=== PATIENT | female | born 1980 | race American Indian/Alaskan Native ===

== ENCOUNTER 2017-01-29 08:15 | Outpatient (CLI) | payer MEDICARE ==
--- NOTE | 2017-01-30 08:33 | Vascular Lab Report ---
RIGHT UPPER EXTREMITY VENOUS DUPLEX: REASON FOR EXAM: Pain and swelling of the right upper extremity COMMENTS ON THE RIGHT: All arm veins visualized are freely compressible without evidence of internal echogenicity. The subclavian and internal jugular veins are free of thrombus. Flow is spontaneous and phasic throughout. Chronic superficial thrombophlebitis is noted in the mid cephalic vein COMMENTS ON THE LEFT: The subclavian and internal jugular veins are free of thrombus. IMPRESSION: No evidence of acute or chronic deep venous thrombosis in the right upper extremity. Chronic superficial thrombophlebitis in the right cephalic vein
== END 2017-01-29 08:16 | disposition home or self-care (01) ==
LOC: VAS 08:15
PROVIDERS: ATTEND Internal Medicine Hematology
DX: I63.6 Cerebral infarction due to cerebral venous thrombosis, nonpyogenic (principal); I82.623 Acute embolism and thrombosis of deep veins of upper extremity, bilateral; I80.8 Phlebitis and thrombophlebitis of other sites

== ENCOUNTER 2017-04-10 12:29 | Outpatient (CLI) | payer MEDICARE ==
[2017-04-10 12:44] LABS: Basophils % (Auto) 0.7 % (0.0-1.8); Eosinophils % (Auto) 6.8 % (0.0-4.3); Hematocrit 35.3 % (30.3-42.9); Hemoglobin 11.2 gm/dl (10.1-14.3); Mean Corpuscular HGB Conc 32 % (30-34); Mean Corpuscular Volume 72 fl (79-97); Platelet Count 212 K/mm3 (140-440); Red Blood Count 4.89 M/mm3 (3.65-5.03); Red Cell Distribution Width 18.4 % (13.2-15.2); White Blood Count 7.7 K/mm3 (4.5-11.0)
[2017-04-10 12:45] LABS: Mean Corpuscular Hemoglobin 23 pg (28-32)
[2017-04-10 12:46] LABS: Bilirubin,Urine NEG (Negative); Blood,Urine NEG (Negative); Ketones,Urine NEG (Negative); Leukocyte Esterase,Urine NEG (Negative); Mucus,Urine FEW /HPF; Nitrite,Urine NEG (Negative); Protein,Urine <15 mg/dL mg/dL (Negative); Urobilinogen,Urine < 2.0 mg/dL (<2.0)
[2017-04-10 13:02] LABS: Anion Gap 18 mmol/L; Blood Urea Nitrogen 10 mg/dL (7-17); Calcium 9.4 mg/dL (8.4-10.2); Carbon Dioxide 24 mmol/L (22-30); Chloride 104.3 mmol/L (98-107); Glucose 119 mg/dL (65-100); Potassium 3.9 mmol/L (3.6-5.0); Sodium 142 mmol/L (137-145)
== END 2017-04-10 12:30 | disposition home or self-care (01) ==
LOC: LAB 12:29
PROVIDERS: ATTEND Internal Medicine Nephrology
DX: I12.9 Hypertensive chronic kidney disease with stage 1 through stage 4 chronic kidney disease, or unspecified chronic kidney disease (principal); N18.2 Chronic kidney disease, stage 2 (mild); E11.22 Type 2 diabetes mellitus with diabetic chronic kidney disease; E55.9 Vitamin D deficiency, unspecified
CPT/HCPCS: 36415; 80048; 81001; 82570; 84156; 85025

== ENCOUNTER 2017-06-26 12:41 | Outpatient (CLI) | payer MEDICARE ==
--- NOTE | 2017-06-27 07:21 | Vascular Lab Report ---
LEFT UPPER EXTREMITY VENOUS DUPLEX: REASON FOR EXAM: Pain and swelling of the left upper extremity COMMENTS ON THE LEFT: Chronic deep venous thrombosis is noted in the left internal jugular vein. Superficial thrombophlebitis noted at mid cephalic vein.. The remaining veins visualized are freely compressible without evidence of internal echogenicity. Spontaneous and phasic flow is present proximally. COMMENTS ON THE RIGHT: The subclavian and internal jugular veins are free of thrombus. 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 Superficial thrombophlebitis in the mid cephalic vein.
== END 2017-06-26 12:42 | disposition home or self-care (01) ==
LOC: VAS 12:41
PROVIDERS: ATTEND Internal Medicine Hematology & Oncology
DX: I82.C22 Chronic embolism and thrombosis of left internal jugular vein (principal); I80.8 Phlebitis and thrombophlebitis of other sites; I63.6 Cerebral infarction due to cerebral venous thrombosis, nonpyogenic; E11.9 Type 2 diabetes mellitus without complications; I10 Essential (primary) hypertension; J45.909 Unspecified asthma, uncomplicated

== ENCOUNTER 2017-08-01 12:14 | Outpatient (CLI) | payer MEDICARE ==
[2017-08-01 12:58] LABS: Blood Urea Nitrogen 8 mg/dL (7-17)
[2017-08-01] MEDS ORDERED: NACL ONE (13:16)
--- NOTE | 2017-08-01 14:46 | Cat Scan Report ---
CT scan of upper left extremity with contrast injection: History: Acute embolism. Findings: Extravasation of contrast is noted in the subcutaneous tissue during injection of contrast. Extravasated area measures 3.3 cm in diameter. Noted distal to the elbow. The deep venous system of the left arm including axillary vein is visualized and reveals no definite evidence of acute deep vein thrombosis. Impression: No definite evidence of acute deep vein thrombosis.
== END 2017-08-01 12:15 | disposition home or self-care (01) ==
LOC: CT 12:14
PROVIDERS: ATTEND Internal Medicine Hematology
DX: I82.623 Acute embolism and thrombosis of deep veins of upper extremity, bilateral (principal); I63.6 Cerebral infarction due to cerebral venous thrombosis, nonpyogenic
CPT/HCPCS: 36415; 73201; 82565; 84520; Q9967

== ENCOUNTER 2017-09-16 08:04 | Outpatient (CLI) | payer MEDICARE ==
--- NOTE | 2017-09-18 11:30 | Vascular Lab Report ---
LEFT UPPER EXTREMITY VENOUS DUPLEX: REASON FOR EXAM: DVT COMMENTS ON THE LEFT: There is a chronic deep venous thrombus in the left internal jugular vein which is nonocclusive and a chronic deep venous thrombus extending into the left subclavian vein and left axillary vein which is nonocclusive. The remaining veins visualized are freely compressible without evidence of internal echogenicity. Spontaneous and phasic flow is diminished proximally. COMMENTS ON THE RIGHT: The subclavian and internal jugular veins are free of thrombus. IMPRESSION: Chronic left upper extremity deep venous thrombus; no acute deep venous thrombus noted
== END 2017-09-16 08:05 | disposition home or self-care (01) ==
LOC: VAS 08:04
PROVIDERS: ATTEND Internal Medicine Hematology
DX: I82.623 Acute embolism and thrombosis of deep veins of upper extremity, bilateral (principal); I63.6 Cerebral infarction due to cerebral venous thrombosis, nonpyogenic

== ENCOUNTER 2017-10-03 04:10 | Inpatient (IN) | payer MEDICARE ==
[2017-10-03] MEDS ORDERED: AMIDATE IV ONE (04:14)
[2017-10-03] MEDS ORDERED: ZEMURON IV ONE (04:14)
[2017-10-03] MEDS ORDERED: NARCAN 2 MG/2 ML ONE (04:14)
[2017-10-03] MEDS ORDERED: VASELINE LIP THERAPY TP PRN ×2 (04:22→06:41)
[2017-10-03] MEDS ORDERED: ARTIFICIAL TEARS OPHTH OINT OU PRN ×2 (04:22→06:41)
--- NOTE | 2017-10-03 04:39 | Emergency Department Report ---
ED Altered Mental Status HPI - General Chief Complaint: Altered Mental Status Stated Complaint: UNRESPONSIVE Time Seen by Provider: 10/03/17 04:23 Source: EMS Mode of arrival: Ambulatory Limitations: No Limitations - History of Present Illness Initial Comments: 20. Patient is a 37-year-old female past history of diabetes and stroke who presents with unresponsiveness and altered mental status. History obtained by EMS. Patient had a seizure and was found unresponsive by her son patient was given 2 mg of Narcan by EMS her blood sugar via EMS was over 500. Further history is limited due to acuity of condition. - Related Data Home Medications Medication Instructions Recorded Confirmed Last Taken Advair HFA 45/21 mcg 2 puff INHALATION BID 12/08/15 12/08/15 12/04/15 Insulin NPH Hum/Reg Insulin Hm 25 units SQ BID 12/08/15 12/08/15 12/04/15 Levemir VIAL 25 units SQ HS 12/08/15 12/08/15 12/04/15 ProAir HFA Inhaler 2 puff INHALATION DAILY 12/08/15 12/08/15 12/04/15 Previous Rx's Medication Instructions Recorded Last Taken Type Canagliflozin (Nf) [Invokana] 100 mg PO QDAY #30 tablet 12/10/15 Unknown Rx Allergies Allergy/AdvReac Type Severity Reaction Status Date / Time egg Allergy Unknown Verified 10/03/17 04:13 orange Allergy Rash Verified 10/03/17 04:13 peanut Allergy Unknown Verified 10/03/17 04:13 strawberry Allergy Rash Verified 10/03/17 04:13 Sulfa (Sulfonamide Allergy Unknown Verified 10/03/17 04:13 Antibiotics) sulfamethoxazole Allergy Unknown Verified 10/03/17 04:13 [From Bactrim] trimethoprim [From Bactrim] Allergy Unknown Verified 10/03/17 04:13 SEAFOOD Allergy Rash Uncoded 10/03/17 04:13 ED Review of Systems ROS: Stated complaint: UNRESPONSIVE Other details as noted in HPI ED Past Medical Hx - Past Medical History Previous Medical History?: Yes Hx Hypertension: Yes Hx Congestive Heart Failure: No Hx Diabetes: Yes Hx Deep Vein Thrombosis: No Hx Seizures: Yes ( induced- last seizure 4 yrs ago) Hx Asthma: Yes Hx COPD: No Additional medical history: "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 PER EMS" - Surgical History Past Surgical History?: Yes Hx Pacemaker: No Hx Internal Defibrillator: No Additional Surgical History: "left knee" "" "sinus surgeries" - Social History Smoking Status: Never Smoker - Medications Home Medications: Home Medications Medication Instructions Recorded Confirmed Last Taken Type Advair HFA 45/21 mcg 2 puff INHALATION BID 12/08/15 12/08/15 12/04/15 History Insulin NPH Hum/Reg Insulin Hm 25 units SQ BID 12/08/15 12/08/15 12/04/15 History Levemir VIAL 25 units SQ HS 12/08/15 12/08/15 12/04/15 History ProAir HFA Inhaler 2 puff INHALATION DAILY 12/08/15 12/08/15 12/04/15 History Canagliflozin (Nf) [Invokana] 100 mg PO QDAY #30 tablet 12/10/15 Unknown Rx ED Physical Exam - General Limitations: No Limitations - Assessment Assessment Interval: Baseline - Level of Consciousness 1a. Level of Consciousness: not alert, rep stimuli - LOC Questions 1b. LOC Questions: answers no questions correctly - LOC Command 1c. LOC Commands: performs no tasks correctly - Best Gaze 2. Best Gaze: normal - Visual 3. Visual: bilateral hemianopia - Facial Palsy 4. Facial Palsy: normal symmetrical movement - Motor Arm 5b. Motor Arm Right: no movement 5a. Motor Arm Left: no movement - Motor Leg 6a. Motor Leg Left: no movement 6b. Motor Leg Right: no movement - Limb Ataxia 7. Limb Ataxia: absent - Sensory 8. Sensory: normal - Best Language 9. Best Language: no aphasia - Dysarthria 10. Dysarthria: normal - Extinction and Inattention 11. Extinction/Inattention: no abnormality - Scoring Total Score: 25 Stroke Severity: Severe Stroke ED Course Vital Signs 10/03/17 10/03/17 10/03/17 04:10 04:22 05:36 Pulse Rate 123 H 127 H Respiratory 18 18 19 Rate Blood Pressure 125/76 Blood Pressure 137/79 [Left] O2 Sat by Pulse 95 99 100 Oximetry 10/03/17 10/03/17 05:39 06:21 Pulse Rate Respiratory 18 20 Rate Blood Pressure Blood Pressure [Left] O2 Sat by Pulse 100 100 Oximetry - Reevaluation(s) Reevaluation #1: 10/03/17 06:57 Discussed patient's care with patient's family they state patient is not on any insulin and takes Januvia for her diabetes. - Intubation Time Out Performed: Yes Sedative: Etomidate Mg Given: 20 Paralytic: Rocuronium Mg Given: 100 Laryngoscope: fiberoptic video scope Size: 3 Assist Device Used: fiberoptic device ET Tube Size: 7.5 Tube Secured Depth (cm): 28 Tube Placement Confirmation: visualized tube passing t, equal breath sounds bilat, confirmation by capnometr Patient Tolerated Procedure: well Intubation Complications: none - Lab Data Result diagrams: 10/03/17 04:22 10/03/17 05:18 Lab Results 10/03/17 10/03/17 10/03/17 Range/Units 04:22 04:22 04:22 WBC 13.8 H (4.5-11.0) K/mm3 RBC 5.13 H (3.65-5.03) M/mm3 Hgb 12.4 (10.1-14.3) gm/dl Hct 43.6 H (30.3-42.9) % MCV 85 (79-97) fl MCH 24 L (28-32) pg MCHC 29 L (30-34) % RDW 17.4 H (13.2-15.2) % Plt Count 204 (140-440) K/mm3 Lymph % (Auto) 26.4 (13.4-35.0) % [place] % (Auto) 8.4 H (0.0-7.3) % Eos % (Auto) 0.3 (0.0-4.3) % Baso % (Auto) 0.5 (0.0-1.8) % Lymph # 3.7 (1.2-5.4) K/mm3 [place] # 1.2 H (0.0-0.8) K/mm3 Eos # 0.0 (0.0-0.4) K/mm3 Baso # 0.1 (0.0-0.1) K/mm3 Seg Neutrophils % 64.4 (40.0-70.0) % Seg Neutrophils # 8.9 H (1.8-7.7) K/mm3 VBG pH (7.320-7.420) Sodium 128 L (137-145) mmol/L Potassium 4.3 (3.6-5.0) mmol/L Chloride 86.0 L (98-107) mmol/L Carbon Dioxide 18 L (22-30) mmol/L Anion Gap 28 mmol/L BUN 18 H (7-17) mg/dL Creatinine 1.7 H (0.7-1.2) mg/dL Estimated GFR 40 ml/min BUN/Creatinine Ratio 11 % Glucose 1396 H* (65-100) mg/dL Lactic Acid 7.20 H* (0.7-2.0) mmol/L Calcium 9.8 (8.4-10.2) mg/dL Phosphorus (2.5-4.5) mg/dL Magnesium 2.50 H (1.7-2.3) mg/dL Total Bilirubin 0.60 (0.1-1.2) mg/dL AST 11 (5-40) units/L ALT 13 (7-56) units/L Alkaline Phosphatase 107 (35-129) units/L Total Protein 8.4 H (6.3-8.2) g/dL Albumin 4.5 (3.9-5) g/dL Albumin/Globulin Ratio 1.2 % TSH (0.270-4.200) mlU/mL HCG, Qual (Negative) Urine Color (Yellow) Urine Turbidity (Clear) Urine pH (5.0-7.0) Ur Specific [place] (1.003-1.030) Urine Protein (Negative) mg/dL Urine Glucose (UA) (Negative) mg/dL Urine Ketones (Negative) mg/dL Urine Blood (Negative) Urine Nitrite (Negative) Urine Bilirubin (Negative) Urine Urobilinogen (<2.0) mg/dL Ur Leukocyte Esterase (Negative) Urine WBC (Auto) (0.0-6.0) /HPF Urine RBC (Auto) (0.0-6.0) /HPF U Epithel Cells (Auto) (0-13.0) /HPF Urine Mucus /HPF Salicylates (2.8-20.0) mg/dL Urine Opiates Screen Urine Methadone Screen Acetaminophen (10.0-30.0) ug/mL Ur Phencyclidine Scrn Ur Amphetamines Screen Urine Cocaine Screen U Marijuana (THC) Screen Plasma/Serum Alcohol (0-0.07) gm% 10/03/17 10/03/17 10/03/17 Range/Units 04:22 04:22 04:22 WBC (4.5-11.0) K/mm3 RBC (3.65-5.03) M/mm3 Hgb (10.1-14.3) gm/dl Hct (30.3-42.9) % MCV (79-97) fl MCH (28-32) pg MCHC (30-34) % RDW (13.2-15.2) % Plt Count (140-440) K/mm3 Lymph % (Auto) (13.4-35.0) % [place] % (Auto) (0.0-7.3) % Eos % (Auto) (0.0-4.3) % Baso % (Auto) (0.0-1.8) % Lymph # (1.2-5.4) K/mm3 [place] # (0.0-0.8) K/mm3 Eos # (0.0-0.4) K/mm3 Baso # (0.0-0.1) K/mm3 Seg Neutrophils % (40.0-70.0) % Seg Neutrophils # (1.8-7.7) K/mm3 VBG pH (7.320-7.420) Sodium (137-145) mmol/L Potassium (3.6-5.0) mmol/L Chloride (98-107) mmol/L Carbon Dioxide (22-30) mmol/L Anion Gap mmol/L BUN (7-17) mg/dL Creatinine (0.7-1.2) mg/dL Estimated GFR ml/min BUN/Creatinine Ratio % Glucose (65-100) mg/dL Lactic Acid (0.7-2.0) mmol/L Calcium (8.4-10.2) mg/dL Phosphorus (2.5-4.5) mg/dL Magnesium (1.7-2.3) mg/dL Total Bilirubin (0.1-1.2) mg/dL AST (5-40) units/L ALT (7-56) units/L Alkaline Phosphatase (35-129) units/L Total Protein (6.3-8.2) g/dL Albumin (3.9-5) g/dL Albumin/Globulin Ratio % TSH 0.974 (0.270-4.200) mlU/mL HCG, Qual (Negative) Urine Color (Yellow) Urine Turbidity (Clear) Urine pH (5.0-7.0) Ur Specific [place] (1.003-1.030) Urine Protein (Negative) mg/dL Urine Glucose (UA) (Negative) mg/dL Urine Ketones (Negative) mg/dL Urine Blood (Negative) Urine Nitrite (Negative) Urine Bilirubin (Negative) Urine Urobilinogen (<2.0) mg/dL Ur Leukocyte Esterase (Negative) Urine WBC (Auto) (0.0-6.0) /HPF Urine RBC (Auto) (0.0-6.0) /HPF U Epithel Cells (Auto) (0-13.0) /HPF Urine Mucus /HPF Salicylates < 0.3 L (2.8-20.0) mg/dL Urine Opiates Screen Urine Methadone Screen Acetaminophen (10.0-30.0) ug/mL Ur Phencyclidine Scrn Ur Amphetamines Screen Urine Cocaine Screen U Marijuana (THC) Screen Plasma/Serum Alcohol < 0.01 (0-0.07) gm% 10/03/17 10/03/17 10/03/17 Range/Units 05:18 05:18 05:18 WBC (4.5-11.0) K/mm3 RBC (3.65-5.03) M/mm3 Hgb (10.1-14.3) gm/dl Hct (30.3-42.9) % MCV (79-97) fl MCH (28-32) pg MCHC (30-34) % RDW (13.2-15.2) % Plt Count (140-440) K/mm3 Lymph % (Auto) (13.4-35.0) % [place] % (Auto) (0.0-7.3) % Eos % (Auto) (0.0-4.3) % Baso % (Auto) (0.0-1.8) % Lymph # (1.2-5.4) K/mm3 [place] # (0.0-0.8) K/mm3 Eos # (0.0-0.4) K/mm3 Baso # (0.0-0.1) K/mm3 Seg Neutrophils % (40.0-70.0) % Seg Neutrophils # (1.8-7.7) K/mm3 VBG pH 7.211 L (7.320-7.420) Sodium (137-145) mmol/L Potassium (3.6-5.0) mmol/L Chloride (98-107) mmol/L Carbon Dioxide (22-30) mmol/L Anion Gap mmol/L BUN (7-17) mg/dL Creatinine (0.7-1.2) mg/dL Estimated GFR ml/min BUN/Creatinine Ratio % Glucose (65-100) mg/dL Lactic Acid (0.7-2.0) mmol/L Calcium (8.4-10.2) mg/dL Phosphorus (2.5-4.5) mg/dL Magnesium (1.7-2.3) mg/dL Total Bilirubin (0.1-1.2) mg/dL AST (5-40) units/L ALT (7-56) units/L Alkaline Phosphatase (35-129) units/L Total Protein (6.3-8.2) g/dL Albumin (3.9-5) g/dL Albumin/Globulin Ratio % TSH (0.270-4.200) mlU/mL HCG, Qual Negative (Negative) Urine Color (Yellow) Urine Turbidity (Clear) Urine pH (5.0-7.0) Ur Specific [place] (1.003-1.030) Urine Protein (Negative) mg/dL Urine Glucose (UA) (Negative) mg/dL Urine Ketones (Negative) mg/dL Urine Blood (Negative) Urine Nitrite (Negative) Urine Bilirubin (Negative) Urine Urobilinogen (<2.0) mg/dL Ur Leukocyte Esterase (Negative) Urine WBC (Auto) (0.0-6.0) /HPF Urine RBC (Auto) (0.0-6.0) /HPF U Epithel Cells (Auto) (0-13.0) /HPF Urine Mucus /HPF Salicylates (2.8-20.0) mg/dL Urine Opiates Screen Urine Methadone Screen Acetaminophen < 15.0 (10.0-30.0) ug/mL Ur Phencyclidine Scrn Ur Amphetamines Screen Urine Cocaine Screen U Marijuana (THC) Screen Plasma/Serum Alcohol (0-0.07) gm% 10/03/17 10/03/17 10/03/17 Range/Units 05:18 05:32 05:43 WBC (4.5-11.0) K/mm3 RBC (3.65-5.03) M/mm3 Hgb (10.1-14.3) gm/dl Hct (30.3-42.9) % MCV (79-97) fl MCH (28-32) pg MCHC (30-34) % RDW (13.2-15.2) % Plt Count (140-440) K/mm3 Lymph % (Auto) (13.4-35.0) % [place] % (Auto) (0.0-7.3) % Eos % (Auto) (0.0-4.3) % Baso % (Auto) (0.0-1.8) % Lymph # (1.2-5.4) K/mm3 [place] # (0.0-0.8) K/mm3 Eos # (0.0-0.4) K/mm3 Baso # (0.0-0.1) K/mm3 Seg Neutrophils % (40.0-70.0) % Seg Neutrophils # (1.8-7.7) K/mm3 VBG pH (7.320-7.420) Sodium 131 L (137-145) mmol/L Potassium 6.7 H* D (3.6-5.0) mmol/L Chloride 90.2 L (98-107) mmol/L Carbon Dioxide 19 L (22-30) mmol/L Anion Gap 29 mmol/L BUN 18 H (7-17) mg/dL Creatinine 1.6 H (0.7-1.2) mg/dL Estimated GFR 43 ml/min BUN/Creatinine Ratio 11 % Glucose 1313 H* (65-100) mg/dL Lactic Acid (0.7-2.0) mmol/L Calcium 10.2 (8.4-10.2) mg/dL Phosphorus 9.60 H (2.5-4.5) mg/dL Magnesium 2.50 H (1.7-2.3) mg/dL Total Bilirubin (0.1-1.2) mg/dL AST (5-40) units/L ALT (7-56) units/L Alkaline Phosphatase (35-129) units/L Total Protein (6.3-8.2) g/dL Albumin (3.9-5) g/dL Albumin/Globulin Ratio % TSH (0.270-4.200) mlU/mL HCG, Qual (Negative) Urine Color Red (Yellow) Urine Turbidity Clear (Clear) Urine pH 6.0 (5.0-7.0) Ur Specific [place] 1.025 (1.003-1.030) Urine Protein <15 mg/dl (Negative) mg/dL Urine Glucose (UA) >=500 (Negative) mg/dL Urine Ketones Tr (Negative) mg/dL Urine Blood Mod (Negative) Urine Nitrite Neg (Negative) Urine Bilirubin Neg (Negative) Urine Urobilinogen < 2.0 (<2.0) mg/dL Ur Leukocyte Esterase Neg (Negative) Urine WBC (Auto) < 1.0 (0.0-6.0) /HPF Urine RBC (Auto) 1.0 (0.0-6.0) /HPF U Epithel Cells (Auto) < 1.0 (0-13.0) /HPF Urine Mucus Few /HPF Salicylates (2.8-20.0) mg/dL Urine Opiates Screen Urine Methadone Screen Acetaminophen (10.0-30.0) ug/mL Ur Phencyclidine Scrn Ur Amphetamines Screen Urine Cocaine Screen U Marijuana (THC) Screen Plasma/Serum Alcohol (0-0.07) gm% 10/03/17 Range/Units 05:43 WBC (4.5-11.0) K/mm3 RBC (3.65-5.03) M/mm3 Hgb (10.1-14.3) gm/dl Hct (30.3-42.9) % MCV (79-97) fl MCH (28-32) pg MCHC (30-34) % RDW (13.2-15.2) % Plt Count (140-440) K/mm3 Lymph % (Auto) (13.4-35.0) % [place] % (Auto) (0.0-7.3) % Eos % (Auto) (0.0-4.3) % Baso % (Auto) (0.0-1.8) % Lymph # (1.2-5.4) K/mm3 [place] # (0.0-0.8) K/mm3 Eos # (0.0-0.4) K/mm3 Baso # (0.0-0.1) K/mm3 Seg Neutrophils % (40.0-70.0) % Seg Neutrophils # (1.8-7.7) K/mm3 VBG pH (7.320-7.420) Sodium (137-145) mmol/L Potassium (3.6-5.0) mmol/L Chloride (98-107) mmol/L Carbon Dioxide (22-30) mmol/L Anion Gap mmol/L BUN (7-17) mg/dL Creatinine (0.7-1.2) mg/dL Estimated GFR ml/min BUN/Creatinine Ratio % Glucose (65-100) mg/dL Lactic Acid (0.7-2.0) mmol/L Calcium (8.4-10.2) mg/dL Phosphorus (2.5-4.5) mg/dL Magnesium (1.7-2.3) mg/dL Total Bilirubin (0.1-1.2) mg/dL AST (5-40) units/L ALT (7-56) units/L Alkaline Phosphatase (35-129) units/L Total Protein (6.3-8.2) g/dL Albumin (3.9-5) g/dL Albumin/Globulin Ratio % TSH (0.270-4.200) mlU/mL HCG, Qual (Negative) Urine Color (Yellow) Urine Turbidity (Clear) Urine pH (5.0-7.0) Ur Specific [place] (1.003-1.030) Urine Protein (Negative) mg/dL Urine Glucose (UA) (Negative) mg/dL Urine Ketones (Negative) mg/dL Urine Blood (Negative) Urine Nitrite (Negative) Urine Bilirubin (Negative) Urine Urobilinogen (<2.0) mg/dL Ur Leukocyte Esterase (Negative) Urine WBC (Auto) (0.0-6.0) /HPF Urine RBC (Auto) (0.0-6.0) /HPF U Epithel Cells (Auto) (0-13.0) /HPF Urine Mucus /HPF Salicylates (2.8-20.0) mg/dL Urine Opiates Screen Presumptive negative Urine Methadone Screen Presumptive negative Acetaminophen (10.0-30.0) ug/mL Ur Phencyclidine Scrn Presumptive negative Ur Amphetamines Screen Presumptive negative Urine Cocaine Screen Presumptive negative U Marijuana (THC) Screen Presumptive negative Plasma/Serum Alcohol (0-0.07) gm% - EKG Data -: EKG Interpreted by Me 10/03/17 06:52 EKG shows sinus tachycardia no ST segment elevation of T-wave inversions normal axis - Radiology Data Radiology results: report reviewed, image reviewed CT head: Shows no acute intracranial process Chest x-ray: Shows ET tube above the kelly no acute cardiopulmonary disease - Medical Decision Making Chief medical diagnosis: Hyperosmolar Nonketotic state Differential medical diagnosis: DKA, brain bleed, epilepsy I will intubate patient I'll give IV fluids, insulin drip, fluids, CBC, CMP, troponin, EKG we'll also get fentanyl and Versed drip Patient has no stroke NIH stroke scale was just autopopulated and patient does not need a cervical collar. Vision has DKA I will admit patient to Dr. Hays service due to life-threatening condition. - NEXUS Criteria Focal neurological deficit present: No Midline spinal tenderness present: No Altered level of consciousness: Yes Intoxication present: No Distracting injury present: No NEXUS results: C-Spine cannot be cleared clinically by these results. Imaging is required. Critical Care Time: Yes (60) Critical care time in (mins) excluding proc time.: 60 Critical care attestation.: If time is entered above; I have spent that time in minutes in the direct care of this critically ill patient, excluding procedure time. Critical care time spent with patient's family 10 minutes Critical care time spent with patient 30 minutes Critical care time spent with reviewing imaging and labs 10 Critical care time spent reviewing old records 10 minutes ED Disposition Clinical Impression: Metabolic acidosis, Toxic encephalopathy, Hyperkalemia DKA (diabetic ketoacidoses) Qualifiers: Diabetes mellitus type: type 2 Diabetes mellitus complication detail: with coma Qualified Code(s): E11.11 - Type 2 diabetes mellitus with ketoacidosis with coma Respiratory failure Qualifiers: Chronicity: acute Respiratory failure complication: unspecified whether with hypoxia or hypercapnia Qualified Code(s): J96.00 - Acute respiratory failure, unspecified whether with hypoxia or hypercapnia Disposition: 09 OP ADMIT IP TO THIS HOSP Is pt being admited?: Yes Does the pt Need Aspirin: No Condition: Stable
[2017-10-03] MEDS ORDERED: NACL 0.9% 500 ML IV SCH (05:00)
[2017-10-03 05:02] LABS: Basophils % (Auto) 0.5 % (0.0-1.8); Eosinophils % (Auto) 0.3 % (0.0-4.3); Hematocrit 43.6 % (30.3-42.9); Hemoglobin 12.4 gm/dl (10.1-14.3); Mean Corpuscular HGB Conc 29 % (30-34); Mean Corpuscular Volume 85 fl (79-97); Platelet Count 204 K/mm3 (140-440); Red Blood Count 5.13 M/mm3 (3.65-5.03); Red Cell Distribution Width 17.4 % (13.2-15.2); White Blood Count 13.8 K/mm3 (4.5-11.0)
[2017-10-03 05:03] LABS: Mean Corpuscular Hemoglobin 24 pg (28-32)
[2017-10-03 05:04] LABS: Albumin 4.5 g/dL (3.9-5); Albumin/Globulin Ratio 1.2 %; Bilirubin,Total 0.6 mg/dL (0.1-1.2); Calcium 9.8 mg/dL (8.4-10.2); Magnesium 2.5 mg/dL (1.7-2.3); Potassium 4.3 mmol/L (3.6-5.0); Total Protein 8.4 g/dL (6.3-8.2)
--- NOTE | 2017-10-03 05:26 | Cat Scan Report ---
FINAL REPORT PROCEDURE: CT HEAD/BRAIN WO CON TECHNIQUE: Computerized tomography of the head was performed without contrast material. HISTORY: altered mental status COMPARISON: 12/05/2015 FINDINGS: Skull and scalp: Normal. Paranasal sinuses: Normal. Ventricles and subarachnoid spaces: Normal. Cerebrum: No evidence of hemorrhage, acute infarction or mass . Cerebellum and brainstem: No evidence of hemorrhage, acute infarction or mass. Vasculature: Normal. Comments: None. IMPRESSION: Normal Examination
[2017-10-03] MEDS: fentaNYL DRIP Premix 2,000 MCG/100 ML BAG IV SCH ×2 (05:31→08:56)
[2017-10-03] MEDS ORDERED: D50W (25GM) Syringe IV PRN ×3 (05:32→05:59)
[2017-10-03] MEDS ORDERED: NACL 0.9% 1000 ML 1,000 ML IV ONE ×2 (05:33)
--- NOTE | 2017-10-03 05:47 | History and Physical Report ---
History of Present Illness Chief complaint: Unresponsive History of present illness: 37 YO Female with MO,HTN, DM presents to ED for evaluation. Pt intubated on vent and unable to provide history. Pt history taken from EMS as well as ED staff. As per EMS, patient was found down and unresponsive by her son who then notified EMS. Upon EMS arrival, the patient was found to be unresponsive with serum glucose above 500. Pt given narcan without improvement. Pt transported to [facility] for evaluation and treatment. Pt seen and evaluated in ED and found to be in respiratory distress, with evidence of DKA and sepsis. Pt treated IAW DKA and sepsis protocols. Pt also intubated and placed on vent support. No reports of fever, chills, CP, Palpitations, NVD, Trauma, or recent ill contacts. Past History Past Medical History: diabetes, hypertension Past Surgical History: , total knee replacement, Other (Sinus surgery) Social history: single, lives with family. denies: smoking, alcohol abuse, prescription drug abuse Family history: diabetes, hypertension Medications and Allergies Allergies Allergy/AdvReac Type Severity Reaction Status Date / Time egg Allergy Unknown Verified 10/03/17 04:13 orange Allergy Rash Verified 10/03/17 04:13 peanut Allergy Unknown Verified 10/03/17 04:13 strawberry Allergy Rash Verified 10/03/17 04:13 Sulfa (Sulfonamide Allergy Unknown Verified 10/03/17 04:13 Antibiotics) sulfamethoxazole Allergy Unknown Verified 10/03/17 04:13 [From Bactrim] trimethoprim [From Bactrim] Allergy Unknown Verified 10/03/17 04:13 SEAFOOD Allergy Rash Uncoded 10/03/17 04:13 Home Medications Medication Instructions Recorded Confirmed Last Taken Type Advair HFA 45/21 mcg 2 puff INHALATION BID 12/08/15 12/08/15 12/04/15 History Insulin NPH Hum/Reg Insulin Hm 25 units SQ BID 12/08/15 12/08/15 12/04/15 History Levemir VIAL 25 units SQ HS 12/08/15 12/08/15 12/04/15 History ProAir HFA Inhaler 2 puff INHALATION DAILY 12/08/15 12/08/15 12/04/15 History Canagliflozin (Nf) [Invokana] 100 mg PO QDAY #30 tablet 12/10/15 Unknown Rx Active Meds: Active Medications Dextrose (D50w (25gm) Syringe) 0 ml IV PRN PRN PRN Reason: Hypoglycemia Hydrophilic Ointment (Vaseline Lip Therapy) 1 applic TP Q2HR PRN PRN Reason: Dry Lips Fentanyl Citrate (Fentanyl Drip Premix) 2,000 mcg in 100 mls @ 6.804 mls/hr IV TITR KUSUM; 1 MCG/KG/HR PRN Reason: Protocol Last Admin: 10/03/17 05:31 Dose: 1 mcg/kg/hr, 6.804 mls/hr Insulin Human Regular 100 (units/ Sodium Chloride) 100 mls @ 1 mls/hr IV TITR KUSUM; 1 UNITS/HR PRN Reason: Protocol Sodium Chloride (Nacl 0.9% 1000 Ml) 1,000 mls @ 999 mls/hr IV BOLUS ONE Stop: 10/03/17 06:33 Sodium Chloride (Nacl 0.9% 1000 Ml) 1,000 mls @ 999 mls/hr IV BOLUS ONE Stop: 10/03/17 06:33 Midazolam HCl (Versed) 5 mg IV ONCE NR Stop: 10/03/17 23:45 Multi-Ingred Cream/Lotion/Oil/Oint (Artificial Tears Ophth Oint) 1 applic OU Q4HR PRN PRN Reason: Dry Eye(s) Sodium Chloride (Nacl 0.9% 500 Ml) 1 ml IV DIRECT KUSUM Review of Systems ROS unobtainable: due to mental status Exam - Constitutional Vitals: Temp Pulse Resp BP Pulse Ox 127 H 18 137/79 100 10/03/17 04:22 10/03/17 05:39 10/03/17 04:22 10/03/17 05:39 General appearance: Present: severe distress, obese - EENT Eyes: Present: PERRL ENT: hearing intact, clear oral mucosa - Neck Neck: Present: supple, normal ROM - Respiratory Respiratory effort: labored Respiratory: bilateral: diminished - Cardiovascular Rhythm: other (tachycardia) Heart Sounds: Present: S1 & S2. Absent: rub, click - Extremities Extremities: no ischemia Extremity abnormal: edema Peripheral Pulses: abnormal (capillary refill greater than 3.5 seconds) - Abdominal General gastrointestinal: Present: soft, non-tender, non-distended Female genitourinary: Present: normal - Integumentary Integumentary: Present: clear, warm, dry - Musculoskeletal Musculoskeletal: generalized weakness - Psychiatric Psychiatric: no intact judgment & insight, no memory intact - Neurologic Neurologic: no gait normal Results - Labs CBC & Chem 7: 10/03/17 04:22 10/03/17 05:18 Labs: Abnormal lab results 10/03/17 10/03/17 10/03/17 Range/Units 04:22 04:22 04:22 WBC 13.8 H (4.5-11.0) K/mm3 RBC 5.13 H (3.65-5.03) M/mm3 Hct 43.6 H (30.3-42.9) % MCH 24 L (28-32) pg MCHC 29 L (30-34) % RDW 17.4 H (13.2-15.2) % [place] % (Auto) 8.4 H (0.0-7.3) % [place] # 1.2 H (0.0-0.8) K/mm3 Seg Neutrophils # 8.9 H (1.8-7.7) K/mm3 VBG pH (7.320-7.420) Sodium 128 L (137-145) mmol/L Chloride 86.0 L (98-107) mmol/L Carbon Dioxide 18 L (22-30) mmol/L BUN 18 H (7-17) mg/dL Creatinine 1.7 H (0.7-1.2) mg/dL Glucose 1396 H* (65-100) mg/dL Lactic Acid 7.20 H* (0.7-2.0) mmol/L Magnesium 2.50 H (1.7-2.3) mg/dL Total Protein 8.4 H (6.3-8.2) g/dL Salicylates (2.8-20.0) mg/dL 10/03/17 10/03/17 Range/Units 04:22 05:18 WBC (4.5-11.0) K/mm3 RBC (3.65-5.03) M/mm3 Hct (30.3-42.9) % MCH (28-32) pg MCHC (30-34) % RDW (13.2-15.2) % [place] % (Auto) (0.0-7.3) % [place] # (0.0-0.8) K/mm3 Seg Neutrophils # (1.8-7.7) K/mm3 VBG pH 7.211 L (7.320-7.420) Sodium (137-145) mmol/L Chloride (98-107) mmol/L Carbon Dioxide (22-30) mmol/L BUN (7-17) mg/dL Creatinine (0.7-1.2) mg/dL Glucose (65-100) mg/dL Lactic Acid (0.7-2.0) mmol/L Magnesium (1.7-2.3) mg/dL Total Protein (6.3-8.2) g/dL Salicylates < 0.3 L (2.8-20.0) mg/dL Assessment and Plan - Patient Problems (1) Sepsis Current Visit: No Status: Acute Qualifiers: Sepsis type: sepsis due to unspecified organism Qualified Code(s): A41.9 - Sepsis, unspecified organism Plan to address problem: IV abx, IVF, monitor uop q shift, serial lactic acid levels, blood cultures, urinalysis, IV pressor support as clinically indicated (2) DKA (diabetic ketoacidoses) Current Visit: Yes Status: Acute Plan to address problem: DKA Protocol: Insulin drip, accu check, monitor anion gap, serial bmp, IVF resuscitation, (3) Acute respiratory failure Current Visit: Yes Status: Acute Plan to address problem: Wean vent as tolerated, Daily SBT, Sedation holiday, daily ABG, supplemental oxygen, nebs, Pulmonary consulted. (4) Metabolic acidosis Current Visit: No Status: Acute Plan to address problem: IVF resuscitation therapy, serial lactic acid, treat sepsis and DKA, (5) ARF (acute renal failure) Current Visit: Yes Status: Acute Plan to address problem: IVF resuscitation therapy, monitor uop q shift (6) Toxic encephalopathy Current Visit: Yes Status: Acute Plan to address problem: IVF resuscitation, treat sepsis and dka. (7) DVT prophylaxis Current Visit: No Status: Acute
[2017-10-03 05:56] LABS: Magnesium 2.5 mg/dL (1.7-2.3); Phosphorous 9.6 mg/dL (2.5-4.5)
[2017-10-03] MEDS ORDERED: ALUM-MAG HYDROX-SIMETH 200-200-20MG/5ML PO PRN (05:59)
[2017-10-03] MEDS ORDERED: DULCOLAX PR PRN (05:59)
[2017-10-03] MEDS ORDERED: MILK OF MAGNESIA PO PRN (05:59)
[2017-10-03] MEDS ORDERED: NovoLIN R 100 UNITS in NACL 0.9% 99 ML IV SCH ×2 (06:00)
[2017-10-03 06:03] LABS: Calcium 10.2 mg/dL (8.4-10.2)
[2017-10-03 06:04] LABS: Chloride 90.2 mmol/L (98-107)
[2017-10-03] MEDS ORDERED: NACL 0.9% 1000 ML IV ONE (06:06)
[2017-10-03 06:27] LABS: Urine Drugs of Abuse Note Disclamer
[2017-10-03 06:32] LABS: Potassium 6.7 mmol/L (3.6-5.0)
[2017-10-03 06:38] LABS: Bilirubin,Urine NEG (Negative); Blood,Urine MOD (Negative); Ketones,Urine TR mg/dL (Negative); Leukocyte Esterase,Urine NEG (Negative); Mucus,Urine FEW /HPF; Nitrite,Urine NEG (Negative); Protein,Urine <15 mg/dL mg/dL (Negative); Urobilinogen,Urine < 2.0 mg/dL (<2.0); WBC,Urine < 1.0 /HPF (0.0-6.0)
[2017-10-03 06:50] LABS: ISTAT Base Excess -5; ISTAT HCO3 22.2; ISTAT PH 7.273 (7.35-7.45); ISTAT PO2 412 (80-105); ISTAT SO2 100; ISTAT TCO2 24
[2017-10-03] MEDS: NovoLIN R 100 UNITS in NACL 0.9% 99 ML IV SCH ×2 (06:58→12:48)
[2017-10-03] MEDS ORDERED: MIDAZOLAM 100 MG in NACL 0.9% 80 ML IV SCH (07:00)
[2017-10-03 07:06] LABS: Calcium 9.4 mg/dL (8.4-10.2); Chloride 98.8 mmol/L (98-107); Magnesium 2.6 mg/dL (1.7-2.3); Phosphorous 4.3 mg/dL (2.5-4.5); Potassium 5.9 mmol/L (3.6-5.0)
[2017-10-03] MEDS: ZOSYN/NS 3.375GM/50ML 3.375 GM/50 ML BAG IV SCH ×3 (07:12→18:30)
[2017-10-03] MEDS: VERSED IV NR ×2 (07:15→07:16)
--- NOTE | 2017-10-03 07:15 | XRay Report ---
FINAL REPORT PROCEDURE: XR CHEST 1V AP TECHNIQUE: Chest radiograph anteroposterior view. CPT 03029 HISTORY: ETT placement COMPARISON: No prior studies are available for comparison. FINDINGS: Heart: Heart is borderline enlarged. Mediastinum/Vessels: Normal. Lungs/Pleural space: There is suboptimal inspiration. There are no infiltrates, effusions or pneumothoraces.. Bony thorax: No acute osseous abnormality. Life support devices: There is an endotracheal tube. The tip is in the right mainstem bronchus and should be pulled back 3 centimeters.. IMPRESSION: Heart is borderline enlarged. There is suboptimal inspiration. There are no infiltrates, effusions or pneumothoraces.. There is an endotracheal tube. The tip is in the right mainstem bronchus and should be pulled back 3 centimeters.. .
[2017-10-03 09:32] LABS: Calcium 8.8 mg/dL (8.4-10.2); Chloride 110.9 mmol/L (98-107); Potassium 3.8 mmol/L (3.6-5.0)
[2017-10-03] MEDS ORDERED: CANAGLIFLOZIN 100 MG PO SCH (10:00)
--- NOTE | 2017-10-03 10:38 | Consultation ---
History of Present Illness Consult date: 10/03/17 Requesting physician: VISHNU DIEZ Reason for consult: other (DKA) History of present illness: PULMONARY/CCM CONSULT NOTE (Full dictation # [id number]) Please see dictated notes for full details Past History Past Medical History: diabetes, hypertension Past Surgical History: , total knee replacement, Other (Sinus surgery) Social history: single, lives with family. denies: smoking, alcohol abuse, prescription drug abuse Family history: diabetes, hypertension Medications and Allergies Allergies Allergy/AdvReac Type Severity Reaction Status Date / Time egg Allergy Unknown Verified 10/03/17 04:13 orange Allergy Rash Verified 10/03/17 04:13 peanut Allergy Unknown Verified 10/03/17 04:13 strawberry Allergy Rash Verified 10/03/17 04:13 Sulfa (Sulfonamide Allergy Unknown Verified 10/03/17 04:13 Antibiotics) sulfamethoxazole Allergy Unknown Verified 10/03/17 04:13 [From Bactrim] trimethoprim [From Bactrim] Allergy Unknown Verified 10/03/17 04:13 SEAFOOD Allergy Rash Uncoded 10/03/17 04:13 Home Medications Medication Instructions Recorded Confirmed Last Taken Type Advair HFA 45/21 mcg 2 puff INHALATION BID 12/08/15 12/08/15 12/04/15 History Insulin NPH Hum/Reg Insulin Hm 25 units SQ BID 12/08/15 12/08/15 12/04/15 History Levemir VIAL 25 units SQ HS 12/08/15 12/08/15 12/04/15 History ProAir HFA Inhaler 2 puff INHALATION DAILY 12/08/15 12/08/15 12/04/15 History Canagliflozin (Nf) [Invokana] 100 mg PO QDAY #30 tablet 12/10/15 Unknown Rx Active Meds: Active Medications Al Hydrox/Mg Hydrox/Simethicone (Alum-Mag Hydrox-Simeth 993-825-51bn/5ml) 30 ml PO Q4H PRN PRN Reason: Indigestion Bisacodyl (Dulcolax) 10 mg VT QDAY PRN PRN Reason: constipation unrelieved by MOM Dextrose (D50w (25gm) Syringe) 0 ml IV PRN PRN PRN Reason: Hypoglycemia Dextrose (D50w (25gm) Syringe) 0 ml IV PRN PRN PRN Reason: Hypoglycemia Dextrose (D50w (25gm) Syringe) 0 ml IV ONCE PRN PRN Reason: Hypoglycemia Hydrophilic Ointment (Vaseline Lip Therapy) 1 applic TP Q2HR PRN PRN Reason: Dry Lips Hydrophilic Ointment (Vaseline Lip Therapy) 1 applic TP Q2HR PRN PRN Reason: Dry Lips Fentanyl Citrate (Fentanyl Drip Premix) 2,000 mcg in 100 mls @ 6.804 mls/hr IV TITR KUSUM; 1 MCG/KG/HR PRN Reason: Protocol Last Admin: 10/03/17 08:56 Dose: 4 mcg/kg/hr, 27.216 mls/hr Insulin Human Regular 100 (units/ Sodium Chloride) 100 mls @ 1 mls/hr IV TITR KUSUM; 1 UNITS/HR PRN Reason: Protocol Last Titration: 10/03/17 09:25 Dose: 16 units/hr, 16 mls/hr Piperacillin Sod/Tazobactam Sod (Zosyn/Ns 3.375gm/50ml) 3.375 gm in 50 mls @ 100 mls/hr IV Q6HR KUSUM Last Admin: 10/03/17 07:12 Dose: 100 mls/hr Midazolam HCl 100 mg/ Sodium (Chloride) 100 mls @ 2 mls/hr IV TITR KUSUM; 2 MG/HR PRN Reason: Protocol Magnesium Hydroxide (Milk Of Magnesia) 30 ml PO Q4H PRN PRN Reason: Constipation Midazolam HCl (Versed) 5 mg IV ONCE NR Stop: 10/03/17 23:45 Last Admin: 10/03/17 07:16 Dose: 5 mg Multi-Ingred Cream/Lotion/Oil/Oint (Artificial Tears Ophth Oint) 1 applic OU Q4HR PRN PRN Reason: Dry Eye(s) Multi-Ingred Cream/Lotion/Oil/Oint (Artificial Tears Ophth Oint) 1 applic OU Q4HR PRN PRN Reason: Dry Eye(s) Sodium Chloride (Nacl 0.9% 500 Ml) 1 ml IV DIRECT KUSUM Physical Examination Vital signs: Vital Signs Pulse Resp 126 H 21 10/03/17 04:08 10/03/17 04:08 Results - Laboratory Findings CBC and BMP: 10/03/17 04:22 10/03/17 14:32 ABG POC ABG pH 7.273 (7.35-7.45) L 10/03/17 06:28 POC ABG pCO2 48.0 (35-45) H 10/03/17 06:28 POC ABG pO2 412 (80-105) H 10/03/17 06:28 POC ABG HCO3 22.2 10/03/17 06:28 POC ABG Total CO2 24 10/03/17 06:28 POC ABG O2 Sat 100 10/03/17 06:28 Abnormal lab findings: Abnormal Labs 10/03/17 10/03/17 10/03/17 04:14 04:22 04:22 WBC 13.8 H RBC 5.13 H Hct 43.6 H MCH 24 L MCHC 29 L RDW 17.4 H [place] % (Auto) 8.4 H [place] # 1.2 H Seg Neutrophils # 8.9 H POC ABG pH POC ABG pCO2 POC ABG pO2 VBG pH Sodium 128 L Potassium Chloride 86.0 L Carbon Dioxide 18 L BUN 18 H Creatinine 1.7 H Glucose 1396 H* POC Glucose > 500 H Lactic Acid Phosphorus Magnesium 2.50 H Total Protein 8.4 H Salicylates 10/03/17 10/03/17 10/03/17 04:22 04:22 05:18 WBC RBC Hct MCH MCHC RDW [place] % (Auto) [place] # Seg Neutrophils # POC ABG pH POC ABG pCO2 POC ABG pO2 VBG pH 7.211 L Sodium Potassium Chloride Carbon Dioxide BUN Creatinine Glucose POC Glucose Lactic Acid 7.20 H* Phosphorus Magnesium Total Protein Salicylates < 0.3 L 10/03/17 10/03/17 10/03/17 05:18 05:32 06:28 WBC RBC Hct MCH MCHC RDW [place] % (Auto) [place] # Seg Neutrophils # POC ABG pH 7.273 L POC ABG pCO2 48.0 H POC ABG pO2 412 H VBG pH Sodium 131 L Potassium 6.7 H* D Chloride 90.2 L Carbon Dioxide 19 L BUN 18 H Creatinine 1.6 H Glucose 1313 H* POC Glucose Lactic Acid Phosphorus 9.60 H Magnesium 2.50 H Total Protein Salicylates 10/03/17 10/03/17 10/03/17 06:29 06:29 07:58 WBC RBC Hct MCH MCHC RDW [place] % (Auto) [place] # Seg Neutrophils # POC ABG pH POC ABG pCO2 POC ABG pO2 VBG pH Sodium Potassium 5.9 H Chloride Carbon Dioxide 20 L BUN 18 H Creatinine 1.5 H Glucose 1146 H* POC Glucose > 500 H Lactic Acid 3.30 H* Phosphorus Magnesium 2.60 H Total Protein Salicylates 10/03/17 08:41 WBC RBC Hct MCH MCHC RDW [place] % (Auto) [place] # Seg Neutrophils # POC ABG pH POC ABG pCO2 POC ABG pO2 VBG pH Sodium 148 H D Potassium Chloride 110.9 H Carbon Dioxide 18 L BUN Creatinine 1.4 H Glucose 757 H* POC Glucose Lactic Acid Phosphorus Magnesium Total Protein Salicylates
[2017-10-03] MEDS: PEPCID IV SCH (12:48)
[2017-10-03] MEDS: HEPARIN SUB-Q SCH ×2 (12:48→21:17)
--- NOTE | 2017-10-03 13:55 | Progress Note ---
Assessment and Plan Assessment and plan: Acute hypoxic respiratory failure DKA, HAGMA SIRS Lactic acidosis RUFUS -Patient is intubated and on mechanical ventilation < 96hrs -Patient is being treated according to DKA protocol, IV fluids -Patient is empirically on IV antibiotic -Pulmonary is following her DVT prophylaxis - Heparin GI prophylaxis - On Pepsid Disposition - Continue ICU care The high probability of a clinically significant, sudden or life threatening deterioration of the [Neurology, respiratory] system(s) required my full and direct attention, intervention and personal management. The aggregate critical care time was [31] minutes. This time is in addition to time spent performing reported procedures but includes the following: [x] Data Review and interpretation [x] Patient assessment and monitoring of vital signs [x] Documentation [x] Medication orders and management History Interval history: Patient was seen and evaluated this morning, patient is intubated and mechanical ventilation. Hospitalist Physical - Physical exam Narrative exam: Patient is intubated and on mechanical ventilation. The patient is morbidly obese. Vital signs as documented. Head exam is unremarkable. No scleral icterus . Neck is without jugular venous distension, thyromegaly, or carotid bruits. Lungs are clear to auscultation. Cardiac exam reveals regular rate and Rhythm. First and second heart sounds normal. No murmurs, rubs or gallops. Abdominal exam reveals normal bowel sounds, no masses, no organomegaly and no aortic enlargement. Extremities are nonedematous and both femoral and pedal pulses are normal. 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 - Constitutional Vitals: Temp Pulse Resp BP Pulse Ox 100 H 20 119/70 100 10/03/17 12:01 10/03/17 12:01 10/03/17 12:01 10/03/17 12:01 General appearance: Present: severe distress, obese Results - Labs CBC & Chem 7: 10/03/17 04:22 10/03/17 08:41 Labs: Laboratory Last Values WBC 13.8 K/mm3 (4.5-11.0) H 10/03/17 04:22 RBC 5.13 M/mm3 (3.65-5.03) H 10/03/17 04:22 Hgb 12.4 gm/dl (10.1-14.3) 10/03/17 04:22 Hct 43.6 % (30.3-42.9) H 10/03/17 04:22 MCV 85 fl (79-97) 10/03/17 04:22 MCH 24 pg (28-32) L 10/03/17 04:22 MCHC 29 % (30-34) L 10/03/17 04:22 RDW 17.4 % (13.2-15.2) H 10/03/17 04:22 Plt Count 204 K/mm3 (140-440) 10/03/17 04:22 Lymph % (Auto) 26.4 % (13.4-35.0) 10/03/17 04:22 [place] % (Auto) 8.4 % (0.0-7.3) H 10/03/17 04:22 Eos % (Auto) 0.3 % (0.0-4.3) 10/03/17 04:22 Baso % (Auto) 0.5 % (0.0-1.8) 10/03/17 04:22 Lymph # 3.7 K/mm3 (1.2-5.4) 10/03/17 04:22 [place] # 1.2 K/mm3 (0.0-0.8) H 10/03/17 04:22 Eos # 0.0 K/mm3 (0.0-0.4) 10/03/17 04:22 Baso # 0.1 K/mm3 (0.0-0.1) 10/03/17 04:22 Seg Neutrophils % 64.4 % (40.0-70.0) 10/03/17 04:22 Seg Neutrophils # 8.9 K/mm3 (1.8-7.7) H 10/03/17 04:22 POC ABG pH 7.273 (7.35-7.45) L 10/03/17 06:28 POC ABG pCO2 48.0 (35-45) H 10/03/17 06:28 POC ABG pO2 412 (80-105) H 10/03/17 06:28 POC ABG HCO3 22.2 10/03/17 06:28 POC ABG Total CO2 24 10/03/17 06:28 POC ABG O2 Sat 100 10/03/17 06:28 POC ABG Base Excess -5 10/03/17 06:28 VBG pH 7.211 (7.320-7.420) L 10/03/17 05:18 FiO2 100 % 10/03/17 06:28 Sodium 148 mmol/L (137-145) H D 10/03/17 08:41 Potassium 3.8 mmol/L (3.6-5.0) D 10/03/17 08:41 Chloride 110.9 mmol/L (98-107) H 10/03/17 08:41 Carbon Dioxide 18 mmol/L (22-30) L 10/03/17 08:41 Anion Gap 23 mmol/L 10/03/17 08:41 BUN 16 mg/dL (7-17) 10/03/17 08:41 Creatinine 1.4 mg/dL (0.7-1.2) H 10/03/17 08:41 Estimated GFR 51 ml/min 10/03/17 08:41 BUN/Creatinine Ratio 11 % 10/03/17 08:41 Glucose 757 mg/dL (65-100) H* 10/03/17 08:41 POC Glucose > 500 (70-105) H 10/03/17 07:58 Lactic Acid 3.30 mmol/L (0.7-2.0) H* 10/03/17 06:29 Calcium 8.8 mg/dL (8.4-10.2) 10/03/17 08:41 Phosphorus 4.30 mg/dL (2.5-4.5) D 10/03/17 06:29 Magnesium 2.60 mg/dL (1.7-2.3) H 10/03/17 06:29 Total Bilirubin 0.60 mg/dL (0.1-1.2) 10/03/17 04:22 AST 11 units/L (5-40) 10/03/17 04:22 ALT 13 units/L (7-56) 10/03/17 04:22 Alkaline Phosphatase 107 units/L (35-129) 10/03/17 04:22 Total Protein 8.4 g/dL (6.3-8.2) H 10/03/17 04:22 Albumin 4.5 g/dL (3.9-5) 10/03/17 04:22 Albumin/Globulin Ratio 1.2 % 10/03/17 04:22 TSH 0.974 mlU/mL (0.270-4.200) 10/03/17 04:22 HCG, Qual Negative (Negative) 10/03/17 05:18 Urine Color Red (Yellow) 10/03/17 05:43 Urine Turbidity Clear (Clear) 10/03/17 05:43 Urine pH 6.0 (5.0-7.0) 10/03/17 05:43 Ur Specific [place] 1.025 (1.003-1.030) 10/03/17 05:43 Urine Protein <15 mg/dl mg/dL (Negative) 10/03/17 05:43 Urine Glucose (UA) >=500 mg/dL (Negative) 10/03/17 05:43 Urine Ketones Tr mg/dL (Negative) 10/03/17 05:43 Urine Blood Mod (Negative) 10/03/17 05:43 Urine Nitrite Neg (Negative) 10/03/17 05:43 Urine Bilirubin Neg (Negative) 10/03/17 05:43 Urine Urobilinogen < 2.0 mg/dL (<2.0) 10/03/17 05:43 Ur Leukocyte Esterase Neg (Negative) 10/03/17 05:43 Urine WBC (Auto) < 1.0 /HPF (0.0-6.0) 10/03/17 05:43 Urine RBC (Auto) 1.0 /HPF (0.0-6.0) 10/03/17 05:43 U Epithel Cells (Auto) < 1.0 /HPF (0-13.0) 10/03/17 05:43 Urine Mucus Few /HPF 10/03/17 05:43 Salicylates < 0.3 mg/dL (2.8-20.0) L 10/03/17 04:22 Urine Opiates Screen Presumptive negative 10/03/17 05:43 Urine Methadone Screen Presumptive negative 10/03/17 05:43 Acetaminophen < 15.0 ug/mL (10.0-30.0) 10/03/17 05:18 Ur Barbiturates Screen Presumptive positive 10/03/17 05:43 Ur Phencyclidine Scrn Presumptive negative 10/03/17 05:43 Ur Amphetamines Screen Presumptive negative 10/03/17 05:43 U Benzodiazepines Scrn Presumptive positive 10/03/17 05:43 Urine Cocaine Screen Presumptive negative 10/03/17 05:43 U Marijuana (THC) Screen Presumptive negative 10/03/17 05:43 Drugs of Abuse Note Disclamer 10/03/17 05:43 Plasma/Serum Alcohol < 0.01 gm% (0-0.07) 10/03/17 04:22 Hyperglycemia - Imaging and Cardiology CT Scan - head: report reviewed (normal)
[2017-10-03] MEDS ORDERED: ZOSYN/NS 4.5GM/100ML 4.5 GM/100 ML VIAL IV SCH (14:00)
[2017-10-03 15:18] LABS: Calcium 10.1 mg/dL (8.4-10.2); Chloride 117.3 mmol/L (98-107); Potassium 4.1 mmol/L (3.6-5.0)
--- NOTE | 2017-10-03 16:29 | XRay Report ---
FINAL REPORT PROCEDURE: Chest. TECHNIQUE: Portable AP view. HISTORY: Endotracheal tube localization. COMPARISON: Chest done earlier today. FINDINGS: The heart and mediastinum appear normal. The lungs are clear and well expanded. There are no pleural effusions. The endotracheal tube has been pulled back. The tip of the tube is right at the kelly. If the tube was pulled back 1.5 centimeters it would be at a more satisfactory position. A nasogastric tube enters the stomach. The soft tissues and regional skeleton are unremarkable. IMPRESSION: Endotracheal tube at the kelly.
[2017-10-03 16:42] LABS: ISTAT Base Excess -5; ISTAT HCO3 21.8; ISTAT PCO2 44.5 (35-45); ISTAT PH 7.298 (7.35-7.45); ISTAT PO2 111 (80-105); ISTAT SO2 98; ISTAT TCO2 23
[2017-10-03] MEDS: D5W/0.45% NACL/KCL 20 MEQ 20 MEQ/1,000 ML BAG IV SCH (18:30)
[2017-10-03 23:19] LABS: Calcium 9.7 mg/dL (8.4-10.2); Chloride 116.9 mmol/L (98-107); Potassium 4.4 mmol/L (3.6-5.0)
[2017-10-04] MEDS: ZOSYN/NS 3.375GM/50ML 3.375 GM/50 ML BAG IV SCH ×3 (00:28→14:27)
[2017-10-04] MEDS: NovoLIN R 100 UNITS in NACL 0.9% 99 ML IV SCH (01:04)
[2017-10-04] MEDS: D5W/0.45% NACL/KCL 20 MEQ 20 MEQ/1,000 ML BAG IV SCH ×2 (03:12→14:34)
--- NOTE | 2017-10-04 04:15 | Consultation ---
DICTATION ENDS HERE JOB# [id number] TANVIR/GUILLERMINA WAGNER
--- NOTE | 2017-10-04 04:26 | Consultation ---
PULMONARY AND CRITICAL CARE CONSULTATION CONSULTING PHYSICIAN: Dr. Hays. REASON FOR CONSULTATION: Acute respiratory failure, hypoxemic as well as DKA. CHIEF COMPLAINT AND HISTORY OF PRESENT ILLNESS: The patient is a 37-year-old female with past medical history significant for diabetes and a CVA in the past, came in with altered mental status, acute on chronic. She had a seizure and had been found unresponsive by her son reportedly. EMS gave her Narcan. She did not respond. Her blood sugars are greater than 500. In the Emergency Room, she was evaluated and was found to have diabetic ketoacidosis essentially. It is unclear where she was intubated, appears like this happened in the Emergency Room. After stabilization, she was transferred to the Intensive Care Unit where I stopped by to see her. When I stopped by to see her, she was on mechanical ventilator. She was significantly sedated, I believe she was on 4 mcg/kg per hour of fentanyl as well as 4 mg per hour of Versed. She was nonresponsive. She was on the mechanical ventilator. There was no significant patient ventilator dyssynchrony. I do not have any history of vomiting or overt aspiration. The patient reportedly is a nonsmoker. This is according to the Emergency Room records. This is much of the history of presentation as I have. PAST MEDICAL HISTORY: Diabetes, hypertension. She is obese. Notes also report a history of a cerebrovascular accident in the past. PAST SURGICAL HISTORY: She has had a section. She has had a total knee replacement. MEDICATIONS: She was on at the time I stopped by to see were reviewed, pertinent medications included the drips I mentioned above. She was on an insulin drip going at 4 units per hour, Zosyn 3.375 g IV q. 6 hours. ALLERGIES: TO EGGS, TO ORANGE, TO PEANUTS, TO STRAWBERRIES. NATURE OF THIS ALLERGY IS UNKNOWN. DIET: She is a morbidly obese female, acute weight loss or gain history is unknown. FAMILY AND SOCIAL HISTORY: Apparently lives in the family. She is single. They denied alcohol, tobacco, or illicit drug use or abuse. The records indicate a family history of diabetes and hypertension. REVIEW OF SYSTEMS: Unobtainable secondary to patient's medical and mental condition. Since she has been here in the ICU, no seizures. EMS did mention seizure activity. She has had no gross hematochezia or melena, no gross hematuria. Review of systems otherwise unobtainable. PHYSICAL EXAMINATION: VITAL SIGNS: At presentation in the Emergency Room, review of the vital signs, the first temperature I have for her is actually from now and is 99.5. At presentation, her pulse was 126, respiratory rate was 21, blood pressure was 125/76, oxygen sats were recorded as 100, inspired oxygen concentration was not recorded. GENERAL: Morbidly obese female normocephalic, atraumatic. Endotracheal tube in place, taped around 23-24 cm at the lips.well sedated. HEAD, EYES, EARS, NOSE AND THROAT: She is anicteric, no conjunctival erythema. Grossly, no palpable lymph nodes in the supraclavicular or submandibular lymph node chains. No thyromegaly. Oropharynx is moist. No gross jugular venous distention. LUNGS: Auscultation of both lung [place] unremarkable. Lungs are clear to auscultation bilaterally. HEART: Sounds 1 and 2 are heard, regular rate and rhythm at time of my evaluation. No rubs, no murmurs. ABDOMEN: Soft, full, bowel sounds are positive, did not appear tender. No palpable organomegaly. EXTREMITIES: Without overt digital clubbing, cyanosis, or pedal edema. The skin is of normal turgor. No cellulitis, no rash. NEUROLOGIC: She is completely sedated and I cannot do a good neurological exam at this time. LABORATORY DATA: From my review are as follows: Admission white cell count 13,800; hemoglobin 12.4; hematocrit 43.6; platelet count 204; no band forms. Arterial blood gas showed a pH of 7.27, pCO2 of 48, pO2 of 412 that was on 100% FiO2. She was on the assist control mode of ventilation. Tidal volume, I believe at that time 500 with a rate of 14 and a PEEP of 5 at the time. Serum sodium 139, potassium 5.9, chloride 99, bicarb 20, BUN 18, creatinine 1.5, glucose 1146. Lactic acid level was 3.30. The anion gap was 26 at that time. Magnesium slightly elevated. Liver function test essentially within normal limits. Urinalysis was done that was negative for nitrites and leukocyte esterase if she was spilling urine. Urine drug screen was positive for barbiturates and benzodiazepines. However, aspirin, Tylenol and alcohol levels were within normal limits. Blood cultures have been sent to the lab. No growth to date. A CT of the head was done. I have reviewed the radiologist's interpretation and essentially it was described as a normal examination. Chest x-ray has been reviewed. It shows mild hypoventilation, borderline cardiomegaly. It is rotated. The ET tube tip appears to be in the right main stem at the time of the tube of this film, and I would like to think based on the clinical exam that it has been pulled back as the radiologist also recommended at that time. No gross pneumothorax, no gross bony fracture. ASSESSMENT AND PLAN: 1. Acute hypoxemic respiratory failure, on mechanical ventilator support. 2. Hyperosmolar nonketotic state. 3. Questionable history of a cerebrovascular accident with a normal CT of the brain, noncontrast 4. Morbid obesity. 5. Sepsis syndrome. 6. Leukocytosis. 7. Metabolic acidosis. 8. Lactic acidosis. PLAN: 1. We will go ahead and lighting sedation and then we will see if we can begin weaning her. I will repeat an arterial blood gas and see where she is. Minute ventilation had been increased initially after the first ABG was gotten. We will continue her on the IV insulin therapy. No acute indication for bicarb therapy at this time. Bronchodilators will be scheduled and ventilator-associated bundle will be addressed daily. Head of the bed will be kept greater than or equal to about 40%. She will be started on GI prophylaxis. I will also begin DVT prophylaxis in the form of heparin. I will get a CRP level to better evaluate the true infectious potential of this leukocytosis, make sure it is just the not stress, denied generalization. In the meantime, we will continue Zosyn therapy. We will follow cultures and deescalate anti-infectives based on that. She will remain n.p.o. for now. Flu and pneumonia vaccination will be per protocol. As we correct the hyperosmolar state, we will see if her mental status does not improve significantly. If it does not, certainly and even at this point, Neurology evaluation will be considered. Again, flu and pneumonia vaccination will be per protocol. Thank are much for the consult Dr. Hays. We will follow along and make further recommendations as picture progresses/becomes clearer. At this point, I have spent about 35-40 minutes of critical care time without overlap and excluding any procedural time that may be necessary. She is critically ill on life-sustaining interventions including mechanical ventilator support and at high risk for further deterioration including . JOB# [id number] TANVIR/GUILLERMINA WAGNER
--- NOTE | 2017-10-04 04:44 | XRay Report ---
FINAL REPORT PROCEDURE: XR CHEST 1V AP TECHNIQUE: Chest radiograph anteroposterior view. CPT 65943 HISTORY: follow up respiratory failure COMPARISON: 10/03/2017 FINDINGS: Heart: Normal. Mediastinum/Vessels: Normal. Lungs/Pleural space: There is suboptimal inspiration. There are no active infiltrates. There are no effusions or pneumothoraces.. Bony thorax: No acute osseous abnormality. Life support devices: Endotracheal tube is in the mid trachea. NG tube is in the stomach.. IMPRESSION: No acute cardiopulmonary abnormality. The ET tube and NG tube are in proper position.
[2017-10-04 06:00] LABS: Calcium 9.4 mg/dL (8.4-10.2); Chloride 116.7 mmol/L (98-107); Potassium 4.4 mmol/L (3.6-5.0)
[2017-10-04] MEDS: HEPARIN SUB-Q SCH ×2 (10:29→22:39)
[2017-10-04] MEDS: PEPCID IV SCH (10:29)
[2017-10-04 11:12] LABS: ISTAT Base Excess -4; ISTAT HCO3 21.2; ISTAT PCO2 38.2 (35-45); ISTAT PH 7.352 (7.35-7.45); ISTAT PO2 142 (80-105); ISTAT SO2 99; ISTAT TCO2 22
--- NOTE | 2017-10-04 11:48 | Progress Note ---
Assessment and Plan Assessment and plan: Acute hypoxic respiratory failure DKA, HAGMA SIRS Lactic acidosis RUFUS Hypernatremia -Patient is on pressure support and likely extubated today -Patient is being treated according to DKA protocol, IV fluids, likely insulin drip will be discontinued today -Patient is empirically on IV antibiotic, blood culture no growth so far - Creatinie is trending UP -Pulmonary is following her DVT prophylaxis - Heparin GI prophylaxis - On Pepsid Disposition - Continue ICU care The high probability of a clinically significant, sudden or life threatening deterioration of the [Neurology, respiratory] system(s) required my full and direct attention, intervention and personal management. The aggregate critical care time was [31] minutes. This time is in addition to time spent performing reported procedures but includes the following: [x] Data Review and interpretation [x] Patient assessment and monitoring of vital signs [x] Documentation [x] Medication orders and management History Interval history: Patient was seen and evaluated this morning, patient was alert and oriented, couldn't speak because she is intubated but able to understand and communicate in writing. Hospitalist Physical - Physical exam Narrative exam: On pressure support The patient is morbidly obese. Vital signs as documented. Head exam is unremarkable. No scleral icterus . Neck is without jugular venous distension, thyromegaly, or carotid bruits. Lungs are clear to auscultation. Cardiac exam reveals regular rate and Rhythm. First and second heart sounds normal. No murmurs, rubs or gallops. Abdominal exam reveals normal bowel sounds, no masses, no organomegaly and no aortic enlargement. Extremities are nonedematous and both femoral and pedal pulses are normal. FORENSIC ARTIST: alert and oriented. - Constitutional Vitals: Temp Pulse Resp BP Pulse Ox 99.3 F 114 H 17 141/91 99 10/04/17 08:00 10/04/17 11:04 10/04/17 11:04 10/04/17 11:04 10/04/17 11:04 General appearance: Present: severe distress, obese Results - Labs CBC & Chem 7: 10/03/17 04:22 10/04/17 04:47 Labs: Laboratory Last Values WBC 13.8 K/mm3 (4.5-11.0) H 10/03/17 04:22 RBC 5.13 M/mm3 (3.65-5.03) H 10/03/17 04:22 Hgb 12.4 gm/dl (10.1-14.3) 10/03/17 04:22 Hct 43.6 % (30.3-42.9) H 10/03/17 04:22 MCV 85 fl (79-97) 10/03/17 04:22 MCH 24 pg (28-32) L 10/03/17 04:22 MCHC 29 % (30-34) L 10/03/17 04:22 RDW 17.4 % (13.2-15.2) H 10/03/17 04:22 Plt Count 204 K/mm3 (140-440) 10/03/17 04:22 Lymph % (Auto) 26.4 % (13.4-35.0) 10/03/17 04:22 [place] % (Auto) 8.4 % (0.0-7.3) H 10/03/17 04:22 Eos % (Auto) 0.3 % (0.0-4.3) 10/03/17 04:22 Baso % (Auto) 0.5 % (0.0-1.8) 10/03/17 04:22 Lymph # 3.7 K/mm3 (1.2-5.4) 10/03/17 04:22 [place] # 1.2 K/mm3 (0.0-0.8) H 10/03/17 04:22 Eos # 0.0 K/mm3 (0.0-0.4) 10/03/17 04:22 Baso # 0.1 K/mm3 (0.0-0.1) 10/03/17 04:22 Seg Neutrophils % 64.4 % (40.0-70.0) 10/03/17 04:22 Seg Neutrophils # 8.9 K/mm3 (1.8-7.7) H 10/03/17 04:22 D-Dimer 709.27 ng/mlDDU (0-234) H 10/03/17 23:53 POC ABG pH 7.352 (7.35-7.45) 10/04/17 11:09 POC ABG pCO2 38.2 (35-45) 10/04/17 11:09 POC ABG pO2 142 (80-105) H 10/04/17 11:09 POC ABG HCO3 21.2 10/04/17 11:09 POC ABG Total CO2 22 10/04/17 11:09 POC ABG O2 Sat 99 10/04/17 11:09 POC ABG Base Excess -4 10/04/17 11:09 VBG pH 7.211 (7.320-7.420) L 10/03/17 05:18 FiO2 35 % 10/04/17 11:09 Sodium 155 mmol/L (137-145) H 10/04/17 04:47 Potassium 4.4 mmol/L (3.6-5.0) 10/04/17 04:47 Chloride 116.7 mmol/L (98-107) H 10/04/17 04:47 Carbon Dioxide 19 mmol/L (22-30) L 10/04/17 04:47 Anion Gap 24 mmol/L 10/04/17 04:47 BUN 19 mg/dL (7-17) H 10/04/17 04:47 Creatinine 2.4 mg/dL (0.7-1.2) H 10/04/17 04:47 Estimated GFR 27 ml/min 10/04/17 04:47 BUN/Creatinine Ratio 8 % 10/04/17 04:47 Glucose 233 mg/dL (65-100) H 10/04/17 04:47 POC Glucose 302 (70-105) H 10/04/17 06:17 Lactic Acid 2.70 mmol/L (0.7-2.0) H* 10/03/17 14:32 Calcium 9.4 mg/dL (8.4-10.2) 10/04/17 04:47 Phosphorus 4.30 mg/dL (2.5-4.5) D 10/03/17 06:29 Magnesium 2.60 mg/dL (1.7-2.3) H 10/03/17 06:29 Total Bilirubin 0.60 mg/dL (0.1-1.2) 10/03/17 04:22 AST 11 units/L (5-40) 10/03/17 04:22 ALT 13 units/L (7-56) 10/03/17 04:22 Alkaline Phosphatase 107 units/L (35-129) 10/03/17 04:22 Troponin T < 0.010 ng/mL (0.00-0.029) 10/03/17 14:32 C-Reactive Protein 6.20 mg/dL (0.00-1.30) H 10/03/17 14:32 Total Protein 8.4 g/dL (6.3-8.2) H 10/03/17 04:22 Albumin 4.5 g/dL (3.9-5) 10/03/17 04:22 Albumin/Globulin Ratio 1.2 % 10/03/17 04:22 TSH 0.974 mlU/mL (0.270-4.200) 10/03/17 04:22 HCG, Qual Negative (Negative) 10/03/17 05:18 Urine Color Red (Yellow) 10/03/17 05:43 Urine Turbidity Clear (Clear) 10/03/17 05:43 Urine pH 6.0 (5.0-7.0) 10/03/17 05:43 Ur Specific [place] 1.025 (1.003-1.030) 10/03/17 05:43 Urine Protein <15 mg/dl mg/dL (Negative) 10/03/17 05:43 Urine Glucose (UA) >=500 mg/dL (Negative) 10/03/17 05:43 Urine Ketones Tr mg/dL (Negative) 10/03/17 05:43 Urine Blood Mod (Negative) 10/03/17 05:43 Urine Nitrite Neg (Negative) 10/03/17 05:43 Urine Bilirubin Neg (Negative) 10/03/17 05:43 Urine Urobilinogen < 2.0 mg/dL (<2.0) 10/03/17 05:43 Ur Leukocyte Esterase Neg (Negative) 10/03/17 05:43 Urine WBC (Auto) < 1.0 /HPF (0.0-6.0) 10/03/17 05:43 Urine RBC (Auto) 1.0 /HPF (0.0-6.0) 10/03/17 05:43 U Epithel Cells (Auto) < 1.0 /HPF (0-13.0) 10/03/17 05:43 Urine Mucus Few /HPF 10/03/17 05:43 Salicylates < 0.3 mg/dL (2.8-20.0) L 10/03/17 04:22 Urine Opiates Screen Presumptive negative 10/03/17 05:43 Urine Methadone Screen Presumptive negative 10/03/17 05:43 Acetaminophen < 15.0 ug/mL (10.0-30.0) 10/03/17 05:18 Ur Barbiturates Screen Presumptive positive 10/03/17 05:43 Ur Phencyclidine Scrn Presumptive negative 10/03/17 05:43 Ur Amphetamines Screen Presumptive negative 10/03/17 05:43 U Benzodiazepines Scrn Presumptive positive 10/03/17 05:43 Urine Cocaine Screen Presumptive negative 10/03/17 05:43 U Marijuana (THC) Screen Presumptive negative 10/03/17 05:43 Drugs of Abuse Note Disclamer 10/03/17 05:43 Plasma/Serum Alcohol < 0.01 gm% (0-0.07) 10/03/17 04:22
--- NOTE | 2017-10-04 13:34 | Progress Note ---
Assessment and Plan Acute Hypoxemic Respiratory Failure Acute Encephalopathy Morbid Obesity HyperOsmolar Non-Ketotic State RUFUS - continue to hold all sedation - initiate free water supplementation (Free waterflushed 300mls q4h and IV1/2 NS ) - continue aspiration precautions - extubate once wakes up (reportedly awake all night - schedule BIPAP qhs post extubation with prn daytime use - continue GI & VTE prophylaxis - consider nephrology evaluation - begin long acting insulin - continue other care per attending .....improving ...32' CCT Subjective Date of service: 10/04/17 Principal diagnosis: Acute Hypoxemic Respiratory Failure; Hyperosmolar non ketotic state Interval history: Patient is seen today for: Acute Hypoxemic Respiratory Failure; Hyperosmolar non ketotic state; Acute Encephalopathy Seen and examined at bedside; 24hour events reviewed; nursing and respiratory care staff consulted; no adverse overnight events reported to me; tolerated SBT well today and ABG acceptable; still somnolent though; no N/V/F/C; no gross bleeding; off IV insulin therapy Objective Vital Signs - 12hr 10/04/17 10/04/17 10/04/17 01:41 01:51 02:00 Temperature Pulse Rate 126 H 123 H 125 H Respiratory 20 20 21 Rate Blood Pressure 116/77 116/77 122/79 O2 Sat by Pulse 98 99 98 Oximetry 10/04/17 10/04/17 10/04/17 02:11 02:21 02:31 Temperature Pulse Rate 124 H 122 H 122 H Respiratory 20 19 20 Rate Blood Pressure 122/79 122/79 122/79 O2 Sat by Pulse 99 99 99 Oximetry 10/04/17 10/04/17 10/04/17 02:41 02:51 03:00 Temperature Pulse Rate 116 H 117 H 116 H Respiratory 18 19 17 Rate Blood Pressure 122/79 122/79 132/88 O2 Sat by Pulse 98 100 Oximetry 10/04/17 10/04/17 10/04/17 03:11 03:17 03:21 Temperature Pulse Rate 119 H 121 H 116 H Respiratory 19 18 Rate Blood Pressure 132/88 132/88 132/88 O2 Sat by Pulse 97 99 99 Oximetry 10/04/17 10/04/17 10/04/17 03:31 03:41 03:51 Temperature Pulse Rate 116 H 116 H 113 H Respiratory 19 18 18 Rate Blood Pressure 132/88 132/88 132/88 O2 Sat by Pulse 99 99 100 Oximetry 10/04/17 10/04/17 10/04/17 04:00 04:11 04:21 Temperature 99.6 F Pulse Rate 115 H 117 H 118 H Respiratory 19 19 18 Rate Blood Pressure 139/87 139/87 139/87 O2 Sat by Pulse 99 99 100 Oximetry 10/04/17 10/04/17 10/04/17 04:31 04:41 04:51 Temperature Pulse Rate 119 H 119 H 118 H Respiratory 18 19 18 Rate Blood Pressure 139/87 139/87 139/87 O2 Sat by Pulse 100 99 100 Oximetry 10/04/17 10/04/17 10/04/17 05:00 05:11 05:21 Temperature Pulse Rate 120 H 115 H 118 H Respiratory 18 18 19 Rate Blood Pressure 137/85 137/85 137/85 O2 Sat by Pulse 99 99 99 Oximetry 10/04/17 10/04/17 10/04/17 05:31 05:41 05:51 Temperature Pulse Rate 116 H 117 H 118 H Respiratory 18 19 18 Rate Blood Pressure 137/85 137/85 137/85 O2 Sat by Pulse 98 99 Oximetry 10/04/17 10/04/17 10/04/17 06:00 06:11 06:21 Temperature Pulse Rate 118 H 119 H 113 H Respiratory 19 18 16 Rate Blood Pressure 131/90 131/90 131/90 O2 Sat by Pulse 100 Oximetry 10/04/17 10/04/17 10/04/17 06:31 06:41 06:51 Temperature Pulse Rate 113 H 121 H 123 H Respiratory 17 17 17 Rate Blood Pressure 131/90 131/90 131/90 O2 Sat by Pulse 100 100 100 Oximetry 10/04/17 10/04/17 10/04/17 07:00 07:11 07:21 Temperature Pulse Rate 122 H 122 H 122 H Respiratory 17 16 17 Rate Blood Pressure 137/82 137/82 137/82 O2 Sat by Pulse 97 100 100 Oximetry 10/04/17 10/04/17 10/04/17 07:31 07:41 07:51 Temperature Pulse Rate 122 H 121 H 122 H Respiratory 17 17 18 Rate Blood Pressure 137/82 137/82 137/82 O2 Sat by Pulse 100 100 100 Oximetry 10/04/17 10/04/17 10/04/17 08:00 08:11 08:20 Temperature 99.3 F Pulse Rate 119 H 117 H 115 H Respiratory 18 18 16 Rate Blood Pressure 124/85 124/85 124/85 O2 Sat by Pulse 95 100 100 Oximetry 10/04/17 10/04/17 10/04/17 08:21 08:31 08:41 Temperature Pulse Rate 117 H 115 H 116 H Respiratory 18 16 16 Rate Blood Pressure 137/82 137/82 137/82 O2 Sat by Pulse 98 100 100 Oximetry 10/04/17 10/04/17 10/04/17 08:51 09:00 09:11 Temperature Pulse Rate 118 H 118 H 119 H Respiratory 19 16 17 Rate Blood Pressure 137/82 140/92 140/92 O2 Sat by Pulse 100 98 100 Oximetry 10/04/17 10/04/17 10/04/17 09:21 09:31 09:41 Temperature Pulse Rate 117 H 118 H 120 H Respiratory 17 19 16 Rate Blood Pressure 140/92 140/92 140/92 O2 Sat by Pulse 99 99 99 Oximetry 10/04/17 10/04/17 10/04/17 09:51 10:00 10:11 Temperature Pulse Rate 117 H 115 H 117 H Respiratory 16 14 15 Rate Blood Pressure 140/92 134/95 134/95 O2 Sat by Pulse 100 97 100 Oximetry 10/04/17 10/04/17 10/04/17 10:21 10:31 10:41 Temperature Pulse Rate 116 H 115 H 117 H Respiratory 17 17 18 Rate Blood Pressure 134/95 140/92 140/92 O2 Sat by Pulse 100 99 100 Oximetry 10/04/17 10/04/17 11:04 12:00 Temperature 99.4 F Pulse Rate 114 H Respiratory 17 Rate Blood Pressure 141/91 O2 Sat by Pulse 99 Oximetry Constitutional: no acute distress, other (somnolent) Eyes: non-icteric ENT: oropharynx moist, other (ETT in place) Neck: supple, no lymphadenopathy, no JVD, other (no thyromegaly) Effort: mildly labored Ascultation: Bilateral: diminished breath sounds, rhonchi (scant in bases) Percussion: Bilateral: not dull Cardiovascular: regular rate and rhythm, other (no rubs / murmurs) Gastrointestinal: normoactive bowel sounds, soft, non-tender, non-distended, other (No HSM) Integumentary: normal Extremities: no cyanosis, pulses normal, no ischemia or petechiae, edema (trace) Neurologic: non-focal exam, pupils equal and round, motor strength normal and Psychiatric: other (unable to assess) CBC and BMP: 10/03/17 04:22 10/04/17 04:47 ABG, PT/INR, D-dimer: ABG POC ABG pH 7.352 (7.35-7.45) 10/04/17 11:09 POC ABG pCO2 38.2 (35-45) 10/04/17 11:09 POC ABG pO2 142 (80-105) H 10/04/17 11:09 POC ABG HCO3 21.2 10/04/17 11:09 POC ABG Total CO2 22 10/04/17 11:09 POC ABG O2 Sat 99 10/04/17 11:09 PT/INR, D-dimer D-Dimer 709.27 ng/mlDDU (0-234) H 10/03/17 23:53 Abnormal lab findings: Abnormal Labs 10/03/17 10/03/17 10/03/17 04:14 04:22 04:22 WBC 13.8 H RBC 5.13 H Hct 43.6 H MCH 24 L MCHC 29 L RDW 17.4 H [place] % (Auto) 8.4 H [place] # 1.2 H Seg Neutrophils # 8.9 H D-Dimer POC ABG pH POC ABG pCO2 POC ABG pO2 VBG pH Sodium 128 L Potassium Chloride 86.0 L Carbon Dioxide 18 L BUN 18 H Creatinine 1.7 H Glucose 1396 H* POC Glucose > 500 H Lactic Acid Phosphorus Magnesium 2.50 H C-Reactive Protein Total Protein 8.4 H Salicylates 10/03/17 10/03/17 10/03/17 04:22 04:22 05:18 WBC RBC Hct MCH MCHC RDW [place] % (Auto) [place] # Seg Neutrophils # D-Dimer POC ABG pH POC ABG pCO2 POC ABG pO2 VBG pH 7.211 L Sodium Potassium Chloride Carbon Dioxide BUN Creatinine Glucose POC Glucose Lactic Acid 7.20 H* Phosphorus Magnesium C-Reactive Protein Total Protein Salicylates < 0.3 L 10/03/17 10/03/17 10/03/17 05:18 05:32 06:28 WBC RBC Hct MCH MCHC RDW [place] % (Auto) [place] # Seg Neutrophils # D-Dimer POC ABG pH 7.273 L POC ABG pCO2 48.0 H POC ABG pO2 412 H VBG pH Sodium 131 L Potassium 6.7 H* D Chloride 90.2 L Carbon Dioxide 19 L BUN 18 H Creatinine 1.6 H Glucose 1313 H* POC Glucose Lactic Acid Phosphorus 9.60 H Magnesium 2.50 H C-Reactive Protein Total Protein Salicylates 10/03/17 10/03/17 10/03/17 06:29 06:29 07:58 WBC RBC Hct MCH MCHC RDW [place] % (Auto) [place] # Seg Neutrophils # D-Dimer POC ABG pH POC ABG pCO2 POC ABG pO2 VBG pH Sodium Potassium 5.9 H Chloride Carbon Dioxide 20 L BUN 18 H Creatinine 1.5 H Glucose 1146 H* POC Glucose > 500 H Lactic Acid 3.30 H* Phosphorus Magnesium 2.60 H C-Reactive Protein Total Protein Salicylates 10/03/17 10/03/17 10/03/17 08:39 08:41 09:26 WBC RBC Hct MCH MCHC RDW [place] % (Auto) [place] # Seg Neutrophils # D-Dimer POC ABG pH POC ABG pCO2 POC ABG pO2 VBG pH Sodium 148 H D Potassium Chloride 110.9 H Carbon Dioxide 18 L BUN Creatinine 1.4 H Glucose 757 H* POC Glucose > 500 H > 500 H Lactic Acid Phosphorus Magnesium C-Reactive Protein Total Protein Salicylates 10/03/17 10/03/17 10/03/17 10:12 11:25 12:03 WBC RBC Hct MCH MCHC RDW [place] % (Auto) [place] # Seg Neutrophils # D-Dimer POC ABG pH POC ABG pCO2 POC ABG pO2 VBG pH Sodium Potassium Chloride Carbon Dioxide BUN Creatinine Glucose POC Glucose 492 H 468 H 300 H Lactic Acid Phosphorus Magnesium C-Reactive Protein Total Protein Salicylates 10/03/17 10/03/17 10/03/17 13:17 14:17 14:32 WBC RBC Hct MCH MCHC RDW [place] % (Auto) [place] # Seg Neutrophils # D-Dimer POC ABG pH POC ABG pCO2 POC ABG pO2 VBG pH Sodium 157 H D Potassium Chloride 117.3 H Carbon Dioxide 21 L BUN Creatinine 1.9 H Glucose 101 H POC Glucose 307 H 116 H Lactic Acid Phosphorus Magnesium C-Reactive Protein Total Protein Salicylates 10/03/17 10/03/17 10/03/17 14:32 14:32 15:47 WBC RBC Hct MCH MCHC RDW [place] % (Auto) [place] # Seg Neutrophils # D-Dimer POC ABG pH POC ABG pCO2 POC ABG pO2 VBG pH Sodium Potassium Chloride Carbon Dioxide BUN Creatinine Glucose POC Glucose 176 H Lactic Acid 2.70 H* Phosphorus Magnesium C-Reactive Protein 6.20 H Total Protein Salicylates 10/03/17 10/03/17 10/03/17 16:32 16:35 17:48 WBC RBC Hct MCH MCHC RDW [place] % (Auto) [place] # Seg Neutrophils # D-Dimer POC ABG pH 7.298 L POC ABG pCO2 POC ABG pO2 111 H VBG pH Sodium Potassium Chloride Carbon Dioxide BUN Creatinine Glucose POC Glucose 208 H 212 H Lactic Acid Phosphorus Magnesium C-Reactive Protein Total Protein Salicylates 10/03/17 10/03/17 10/03/17 18:30 19:52 22:09 WBC RBC Hct MCH MCHC RDW [place] % (Auto) [place] # Seg Neutrophils # D-Dimer POC ABG pH POC ABG pCO2 POC ABG pO2 VBG pH Sodium Potassium Chloride Carbon Dioxide BUN Creatinine Glucose POC Glucose 207 H 151 H 157 H Lactic Acid Phosphorus Magnesium C-Reactive Protein Total Protein Salicylates 10/03/17 10/03/17 10/03/17 22:14 23:32 23:53 WBC RBC Hct MCH MCHC RDW [place] % (Auto) [place] # Seg Neutrophils # D-Dimer 709.27 H POC ABG pH POC ABG pCO2 POC ABG pO2 VBG pH Sodium 156 H Potassium Chloride 116.9 H Carbon Dioxide 20 L BUN 19 H Creatinine 2.4 H Glucose 179 H POC Glucose 270 H Lactic Acid Phosphorus Magnesium C-Reactive Protein Total Protein Salicylates 10/04/17 10/04/17 10/04/17 00:27 01:05 02:08 WBC RBC Hct MCH MCHC RDW [place] % (Auto) [place] # Seg Neutrophils # D-Dimer POC ABG pH POC ABG pCO2 POC ABG pO2 VBG pH Sodium Potassium Chloride Carbon Dioxide BUN Creatinine Glucose POC Glucose 243 H 191 H 140 H Lactic Acid Phosphorus Magnesium C-Reactive Protein Total Protein Salicylates 10/04/17 10/04/17 10/04/17 03:04 04:10 04:47 WBC RBC Hct MCH MCHC RDW [place] % (Auto) [place] # Seg Neutrophils # D-Dimer POC ABG pH POC ABG pCO2 POC ABG pO2 VBG pH Sodium 155 H Potassium Chloride 116.7 H Carbon Dioxide 19 L BUN 19 H Creatinine 2.4 H Glucose 233 H POC Glucose 126 H 195 H Lactic Acid Phosphorus Magnesium C-Reactive Protein Total Protein Salicylates 10/04/17 10/04/17 10/04/17 05:16 06:17 08:35 WBC RBC Hct MCH MCHC RDW [place] % (Auto) [place] # Seg Neutrophils # D-Dimer POC ABG pH POC ABG pCO2 POC ABG pO2 VBG pH Sodium Potassium Chloride Carbon Dioxide BUN Creatinine Glucose POC Glucose 228 H 302 H 205 H Lactic Acid Phosphorus Magnesium C-Reactive Protein Total Protein Salicylates 10/04/17 10/04/17 10/04/17 09:31 11:09 11:19 WBC RBC Hct MCH MCHC RDW [place] % (Auto) [place] # Seg Neutrophils # D-Dimer POC ABG pH POC ABG pCO2 POC ABG pO2 142 H VBG pH Sodium Potassium Chloride Carbon Dioxide BUN Creatinine Glucose POC Glucose 142 H 177 H Lactic Acid Phosphorus Magnesium C-Reactive Protein Total Protein Salicylates 10/04/17 11:54 WBC RBC Hct MCH MCHC RDW [place] % (Auto) [place] # Seg Neutrophils # D-Dimer POC ABG pH POC ABG pCO2 POC ABG pO2 VBG pH Sodium Potassium Chloride Carbon Dioxide BUN Creatinine Glucose POC Glucose 208 H Lactic Acid Phosphorus Magnesium C-Reactive Protein Total Protein Salicylates Chest x-ray: image reviewed (mild hypoventilation; ETT in good position) Allied health notes reviewed: RT
[2017-10-04] MEDS ORDERED: NACL 0.45% 500 ML IV SCH (16:00)
[2017-10-04] MEDS: NACL 0.45% 1000 ML 1,000 ML IV SCH (16:53)
[2017-10-04] MEDS ORDERED: D50W (25GM) Vial IV PRN ×2 (17:00→19:00)
[2017-10-04] MEDS ORDERED: LEVEMIR SUB-Q SCH (17:00)
[2017-10-04] MEDS: NOVOLOG SUB-Q SCH (22:36)
[2017-10-05] MEDS: ZOSYN/NS 3.375GM/50ML 3.375 GM/50 ML BAG IV SCH ×5 (00:28→19:26)
[2017-10-05] MEDS: NACL 0.45% 1000 ML 1,000 ML IV SCH ×2 (05:20→09:27)
[2017-10-05 05:22] LABS: Calcium 8.6 mg/dL (8.4-10.2); Chloride 113.4 mmol/L (98-107)
[2017-10-05 05:41] LABS: Potassium 5.5 mmol/L (3.6-5.0)
[2017-10-05] MEDS: NOVOLOG SUB-Q SCH ×6 (08:00→21:36)
--- NOTE | 2017-10-05 09:11 | XRay Report ---
AP CHEST: HISTORY: Followup respiratory failure Compared to 10/04/17. Lines and tubes have been removed. AP view of the chest demonstrates a normal mediastinal and cardiac contour with clear lungs and normal bony and soft tissue structures. IMPRESSION: Unremarkable AP chest.
[2017-10-05] MEDS: HEPARIN SUB-Q SCH ×2 (10:37→21:35)
[2017-10-05] MEDS: PEPCID IV SCH (10:37)
[2017-10-05] MEDS ORDERED: LEVEMIR SUB-Q SCH (11:30)
[2017-10-05] MEDS ORDERED: KIONEX PO ONE ×2 (13:15→18:00)
--- NOTE | 2017-10-05 13:23 | Progress Note ---
Assessment and Plan Acute Hypoxemic Respiratory Failure Acute Encephalopathy Morbid Obesity HyperOsmolar Non-Ketotic State RUFUS on CKD Hypernatremia - give 10 units IV insulin for BG 400+ now - increased lantus to 20units SQ q24h - change accuchecks to q4h over next 48hours - started januvia 50 mg p.o. qd (1st dose now) - changed to high intensity sliding scale - continue to hold all sedation - stop free water flushes - gave kayexalate 15gms p.o. X 1 - continue qhs BIPAP with prn daytime use - continue GI & VTE prophylaxis - consider nephrology evaluation - will transfer to telemetry later today - continue other care per attending .....improved ....37' Subjective Date of service: 10/05/17 Principal diagnosis: Acute Hypoxemic Respiratory Failure; Hyperosmolar non ketotic state Interval history: Patient is seen today for: Acute Hypoxemic Respiratory Failure; Hyperosmolar non ketotic state; Acute Encephalopathy Seen and examined at bedside; 24hour events reviewed; nursing and respiratory care staff consulted; no adverse overnight events reported to me; resting peacefully in bed; blood sugars high today but without HAGMA; denies acute chest pains or increased SOB and doing well post extubation so far Objective Vital Signs - 12hr 10/05/17 10/05/17 10/05/17 01:21 01:31 01:41 Temperature Pulse Rate 105 H 112 H Pulse Rate [ Left Dorsalis Pedis] Pulse Rate [ Left Radial] Pulse Rate [ Right Dorsalis Pedis] Pulse Rate [ Right Radial] Respiratory 16 20 Rate Blood Pressure 111/73 111/73 111/73 O2 Sat by Pulse 100 99 99 Oximetry 10/05/17 10/05/17 10/05/17 01:51 02:00 02:11 Temperature Pulse Rate 110 H 108 H 103 H Pulse Rate [ Left Dorsalis Pedis] Pulse Rate [ Left Radial] Pulse Rate [ Right Dorsalis Pedis] Pulse Rate [ Right Radial] Respiratory 14 16 17 Rate Blood Pressure 111/73 121/77 121/77 O2 Sat by Pulse 99 100 Oximetry 10/05/17 10/05/17 10/05/17 02:21 02:31 02:41 Temperature Pulse Rate 111 H 109 H 109 H Pulse Rate [ Left Dorsalis Pedis] Pulse Rate [ Left Radial] Pulse Rate [ Right Dorsalis Pedis] Pulse Rate [ Right Radial] Respiratory 15 18 16 Rate Blood Pressure 121/77 121/77 121/77 O2 Sat by Pulse 100 100 100 Oximetry 10/05/17 10/05/17 10/05/17 02:51 03:00 03:11 Temperature Pulse Rate 108 H 114 H 112 H Pulse Rate [ Left Dorsalis Pedis] Pulse Rate [ Left Radial] Pulse Rate [ Right Dorsalis Pedis] Pulse Rate [ Right Radial] Respiratory 16 16 16 Rate Blood Pressure 121/77 107/61 107/61 O2 Sat by Pulse 100 97 100 Oximetry 10/05/17 10/05/17 10/05/17 03:21 03:31 03:41 Temperature Pulse Rate 108 H 109 H 108 H Pulse Rate [ 78 Left Dorsalis Pedis] Pulse Rate [ 78 Left Radial] Pulse Rate [ 78 Right Dorsalis Pedis] Pulse Rate [ 78 Right Radial] Respiratory 16 16 16 Rate Blood Pressure 107/61 107/61 107/61 O2 Sat by Pulse 100 100 100 Oximetry 10/05/17 10/05/17 10/05/17 03:51 04:00 04:11 Temperature 98.9 F Pulse Rate 98 H 101 H 98 H Pulse Rate [ Left Dorsalis Pedis] Pulse Rate [ Left Radial] Pulse Rate [ Right Dorsalis Pedis] Pulse Rate [ Right Radial] Respiratory 16 16 16 Rate Blood Pressure 107/61 112/57 112/57 O2 Sat by Pulse 100 99 Oximetry 10/05/17 10/05/17 10/05/17 04:21 04:31 04:41 Temperature Pulse Rate 102 H 104 H 95 H Pulse Rate [ Left Dorsalis Pedis] Pulse Rate [ Left Radial] Pulse Rate [ Right Dorsalis Pedis] Pulse Rate [ Right Radial] Respiratory 16 16 16 Rate Blood Pressure 112/57 112/57 112/57 O2 Sat by Pulse 99 100 99 Oximetry 10/05/17 10/05/17 10/05/17 04:51 05:00 05:11 Temperature Pulse Rate 99 H 101 H 101 H Pulse Rate [ Left Dorsalis Pedis] Pulse Rate [ Left Radial] Pulse Rate [ Right Dorsalis Pedis] Pulse Rate [ Right Radial] Respiratory 16 16 16 Rate Blood Pressure 112/57 115/63 115/63 O2 Sat by Pulse 100 99 100 Oximetry 10/05/17 10/05/17 10/05/17 05:21 05:31 05:41 Temperature Pulse Rate 97 H 95 H 100 H Pulse Rate [ Left Dorsalis Pedis] Pulse Rate [ Left Radial] Pulse Rate [ Right Dorsalis Pedis] Pulse Rate [ Right Radial] Respiratory 16 16 16 Rate Blood Pressure 115/63 115/63 115/63 O2 Sat by Pulse 100 100 100 Oximetry 10/05/17 10/05/17 10/05/17 05:51 06:00 06:11 Temperature Pulse Rate 101 H 94 H 94 H Pulse Rate [ Left Dorsalis Pedis] Pulse Rate [ Left Radial] Pulse Rate [ Right Dorsalis Pedis] Pulse Rate [ Right Radial] Respiratory 14 16 14 Rate Blood Pressure 115/63 127/81 127/81 O2 Sat by Pulse 97 99 100 Oximetry 10/05/17 10/05/17 10/05/17 06:21 06:31 06:41 Temperature Pulse Rate 99 H 100 H 96 H Pulse Rate [ Left Dorsalis Pedis] Pulse Rate [ Left Radial] Pulse Rate [ Right Dorsalis Pedis] Pulse Rate [ Right Radial] Respiratory 16 16 16 Rate Blood Pressure 127/81 127/81 127/81 O2 Sat by Pulse 100 100 100 Oximetry 10/05/17 10/05/17 10/05/17 06:51 07:00 07:11 Temperature Pulse Rate 99 H 102 H 97 H Pulse Rate [ Left Dorsalis Pedis] Pulse Rate [ Left Radial] Pulse Rate [ Right Dorsalis Pedis] Pulse Rate [ Right Radial] Respiratory 18 18 18 Rate Blood Pressure 127/81 124/76 124/76 O2 Sat by Pulse 100 97 100 Oximetry 10/05/17 10/05/17 10/05/17 07:21 07:31 07:41 Temperature Pulse Rate 95 H 98 H 99 H Pulse Rate [ Left Dorsalis Pedis] Pulse Rate [ Left Radial] Pulse Rate [ Right Dorsalis Pedis] Pulse Rate [ Right Radial] Respiratory 16 16 16 Rate Blood Pressure 124/76 124/76 124/76 O2 Sat by Pulse 100 100 100 Oximetry 10/05/17 10/05/17 10/05/17 07:51 08:00 08:01 Temperature 98.6 F Pulse Rate 96 H 111 H Pulse Rate [ Left Dorsalis Pedis] Pulse Rate [ Left Radial] Pulse Rate [ Right Dorsalis Pedis] Pulse Rate [ Right Radial] Respiratory 16 20 Rate Blood Pressure 124/76 124/76 O2 Sat by Pulse 100 Oximetry 10/05/17 10/05/17 10/05/17 08:11 08:21 08:31 Temperature Pulse Rate 107 H 106 H 112 H Pulse Rate [ Left Dorsalis Pedis] Pulse Rate [ Left Radial] Pulse Rate [ Right Dorsalis Pedis] Pulse Rate [ Right Radial] Respiratory 17 20 17 Rate Blood Pressure 124/76 124/76 124/76 O2 Sat by Pulse Oximetry 10/05/17 10/05/17 10/05/17 08:41 08:53 12:00 Temperature 98.8 F Pulse Rate 106 H Pulse Rate [ Left Dorsalis Pedis] Pulse Rate [ Left Radial] Pulse Rate [ Right Dorsalis Pedis] Pulse Rate [ Right Radial] Respiratory 17 Rate Blood Pressure 124/76 O2 Sat by Pulse 100 Oximetry Constitutional: no acute distress, alert Eyes: non-icteric ENT: oropharynx moist Neck: supple, no lymphadenopathy, no JVD, other (no thyromegaly) Effort: normal Ascultation: Bilateral: clear Percussion: Bilateral: not dull Cardiovascular: regular rate and rhythm, other (no rubs / murmurs) Gastrointestinal: normoactive bowel sounds, soft, non-tender, non-distended, other (No HSM) Integumentary: normal Extremities: no cyanosis, no edema, pulses normal, no ischemia or petechiae Neurologic: normal mental status, non-focal exam, pupils equal and round, motor strength normal and Psychiatric: mood appropriate, affect normal CBC and BMP: 10/03/17 04:22 10/05/17 04:38 ABG, PT/INR, D-dimer: ABG POC ABG pH 7.352 (7.35-7.45) 10/04/17 11:09 POC ABG pCO2 38.2 (35-45) 10/04/17 11:09 POC ABG pO2 142 (80-105) H 10/04/17 11:09 POC ABG HCO3 21.2 10/04/17 11:09 POC ABG Total CO2 22 10/04/17 11:09 POC ABG O2 Sat 99 10/04/17 11:09 PT/INR, D-dimer D-Dimer 709.27 ng/mlDDU (0-234) H 10/03/17 23:53 Abnormal lab findings: Abnormal Labs 10/03/17 10/03/17 10/03/17 04:14 04:22 04:22 WBC 13.8 H RBC 5.13 H Hct 43.6 H MCH 24 L MCHC 29 L RDW 17.4 H [place] % (Auto) 8.4 H [place] # 1.2 H Seg Neutrophils # 8.9 H D-Dimer POC ABG pH POC ABG pCO2 POC ABG pO2 VBG pH Sodium 128 L Potassium Chloride 86.0 L Carbon Dioxide 18 L BUN 18 H Creatinine 1.7 H Glucose 1396 H* POC Glucose > 500 H Lactic Acid Phosphorus Magnesium 2.50 H C-Reactive Protein Total Protein 8.4 H Salicylates 10/03/17 10/03/17 10/03/17 04:22 04:22 05:18 WBC RBC Hct MCH MCHC RDW [place] % (Auto) [place] # Seg Neutrophils # D-Dimer POC ABG pH POC ABG pCO2 POC ABG pO2 VBG pH 7.211 L Sodium Potassium Chloride Carbon Dioxide BUN Creatinine Glucose POC Glucose Lactic Acid 7.20 H* Phosphorus Magnesium C-Reactive Protein Total Protein Salicylates < 0.3 L 10/03/17 10/03/17 10/03/17 05:18 05:32 06:28 WBC RBC Hct MCH MCHC RDW [place] % (Auto) [place] # Seg Neutrophils # D-Dimer POC ABG pH 7.273 L POC ABG pCO2 48.0 H POC ABG pO2 412 H VBG pH Sodium 131 L Potassium 6.7 H* D Chloride 90.2 L Carbon Dioxide 19 L BUN 18 H Creatinine 1.6 H Glucose 1313 H* POC Glucose Lactic Acid Phosphorus 9.60 H Magnesium 2.50 H C-Reactive Protein Total Protein Salicylates 10/03/17 10/03/17 10/03/17 06:29 06:29 07:58 WBC RBC Hct MCH MCHC RDW [place] % (Auto) [place] # Seg Neutrophils # D-Dimer POC ABG pH POC ABG pCO2 POC ABG pO2 VBG pH Sodium Potassium 5.9 H Chloride Carbon Dioxide 20 L BUN 18 H Creatinine 1.5 H Glucose 1146 H* POC Glucose > 500 H Lactic Acid 3.30 H* Phosphorus Magnesium 2.60 H C-Reactive Protein Total Protein Salicylates 10/03/17 10/03/17 10/03/17 08:39 08:41 09:26 WBC RBC Hct MCH MCHC RDW [place] % (Auto) [place] # Seg Neutrophils # D-Dimer POC ABG pH POC ABG pCO2 POC ABG pO2 VBG pH Sodium 148 H D Potassium Chloride 110.9 H Carbon Dioxide 18 L BUN Creatinine 1.4 H Glucose 757 H* POC Glucose > 500 H > 500 H Lactic Acid Phosphorus Magnesium C-Reactive Protein Total Protein Salicylates 10/03/17 10/03/17 10/03/17 10:12 11:25 12:03 WBC RBC Hct MCH MCHC RDW [place] % (Auto) [place] # Seg Neutrophils # D-Dimer POC ABG pH POC ABG pCO2 POC ABG pO2 VBG pH Sodium Potassium Chloride Carbon Dioxide BUN Creatinine Glucose POC Glucose 492 H 468 H 300 H Lactic Acid Phosphorus Magnesium C-Reactive Protein Total Protein Salicylates 10/03/17 10/03/17 10/03/17 13:17 14:17 14:32 WBC RBC Hct MCH MCHC RDW [place] % (Auto) [place] # Seg Neutrophils # D-Dimer POC ABG pH POC ABG pCO2 POC ABG pO2 VBG pH Sodium 157 H D Potassium Chloride 117.3 H Carbon Dioxide 21 L BUN Creatinine 1.9 H Glucose 101 H POC Glucose 307 H 116 H Lactic Acid Phosphorus Magnesium C-Reactive Protein Total Protein Salicylates 10/03/17 10/03/17 10/03/17 14:32 14:32 15:47 WBC RBC Hct MCH MCHC RDW [place] % (Auto) [place] # Seg Neutrophils # D-Dimer POC ABG pH POC ABG pCO2 POC ABG pO2 VBG pH Sodium Potassium Chloride Carbon Dioxide BUN Creatinine Glucose POC Glucose 176 H Lactic Acid 2.70 H* Phosphorus Magnesium C-Reactive Protein 6.20 H Total Protein Salicylates 10/03/17 10/03/17 10/03/17 16:32 16:35 17:48 WBC RBC Hct MCH MCHC RDW [place] % (Auto) [place] # Seg Neutrophils # D-Dimer POC ABG pH 7.298 L POC ABG pCO2 POC ABG pO2 111 H VBG pH Sodium Potassium Chloride Carbon Dioxide BUN Creatinine Glucose POC Glucose 208 H 212 H Lactic Acid Phosphorus Magnesium C-Reactive Protein Total Protein Salicylates 10/03/17 10/03/17 10/03/17 18:30 19:52 22:09 WBC RBC Hct MCH MCHC RDW [place] % (Auto) [place] # Seg Neutrophils # D-Dimer POC ABG pH POC ABG pCO2 POC ABG pO2 VBG pH Sodium Potassium Chloride Carbon Dioxide BUN Creatinine Glucose POC Glucose 207 H 151 H 157 H Lactic Acid Phosphorus Magnesium C-Reactive Protein Total Protein Salicylates 10/03/17 10/03/17 10/03/17 22:14 23:32 23:53 WBC RBC Hct MCH MCHC RDW [place] % (Auto) [place] # Seg Neutrophils # D-Dimer 709.27 H POC ABG pH POC ABG pCO2 POC ABG pO2 VBG pH Sodium 156 H Potassium Chloride 116.9 H Carbon Dioxide 20 L BUN 19 H Creatinine 2.4 H Glucose 179 H POC Glucose 270 H Lactic Acid Phosphorus Magnesium C-Reactive Protein Total Protein Salicylates 10/04/17 10/04/17 10/04/17 00:27 01:05 02:08 WBC RBC Hct MCH MCHC RDW [place] % (Auto) [place] # Seg Neutrophils # D-Dimer POC ABG pH POC ABG pCO2 POC ABG pO2 VBG pH Sodium Potassium Chloride Carbon Dioxide BUN Creatinine Glucose POC Glucose 243 H 191 H 140 H Lactic Acid Phosphorus Magnesium C-Reactive Protein Total Protein Salicylates 10/04/17 10/04/17 10/04/17 03:04 04:10 04:47 WBC RBC Hct MCH MCHC RDW [place] % (Auto) [place] # Seg Neutrophils # D-Dimer POC ABG pH POC ABG pCO2 POC ABG pO2 VBG pH Sodium 155 H Potassium Chloride 116.7 H Carbon Dioxide 19 L BUN 19 H Creatinine 2.4 H Glucose 233 H POC Glucose 126 H 195 H Lactic Acid Phosphorus Magnesium C-Reactive Protein Total Protein Salicylates 10/04/17 10/04/17 10/04/17 05:16 06:17 07:12 WBC RBC Hct MCH MCHC RDW [place] % (Auto) [place] # Seg Neutrophils # D-Dimer POC ABG pH POC ABG pCO2 POC ABG pO2 VBG pH Sodium Potassium Chloride Carbon Dioxide BUN Creatinine Glucose POC Glucose 228 H 302 H 250 H Lactic Acid Phosphorus Magnesium C-Reactive Protein Total Protein Salicylates 10/04/17 10/04/17 10/04/17 08:35 09:31 11:09 WBC RBC Hct MCH MCHC RDW [place] % (Auto) [place] # Seg Neutrophils # D-Dimer POC ABG pH POC ABG pCO2 POC ABG pO2 142 H VBG pH Sodium Potassium Chloride Carbon Dioxide BUN Creatinine Glucose POC Glucose 205 H 142 H Lactic Acid Phosphorus Magnesium C-Reactive Protein Total Protein Salicylates 10/04/17 10/04/17 10/04/17 11:19 11:54 13:02 WBC RBC Hct MCH MCHC RDW [place] % (Auto) [place] # Seg Neutrophils # D-Dimer POC ABG pH POC ABG pCO2 POC ABG pO2 VBG pH Sodium Potassium Chloride Carbon Dioxide BUN Creatinine Glucose POC Glucose 177 H 208 H 285 H Lactic Acid Phosphorus Magnesium C-Reactive Protein Total Protein Salicylates 10/04/17 10/04/17 10/04/17 17:28 21:22 21:24 WBC RBC Hct MCH MCHC RDW [place] % (Auto) [place] # Seg Neutrophils # D-Dimer POC ABG pH POC ABG pCO2 POC ABG pO2 VBG pH Sodium Potassium Chloride Carbon Dioxide BUN Creatinine Glucose POC Glucose 398 H 440 H 395 H Lactic Acid Phosphorus Magnesium C-Reactive Protein Total Protein Salicylates 10/05/17 10/05/17 10/05/17 01:57 04:38 07:24 WBC RBC Hct MCH MCHC RDW [place] % (Auto) [place] # Seg Neutrophils # D-Dimer POC ABG pH POC ABG pCO2 POC ABG pO2 VBG pH Sodium Potassium 5.5 H D Chloride 113.4 H Carbon Dioxide 15 L BUN 31 H Creatinine 2.4 H Glucose 501 H* POC Glucose 447 H 430 H Lactic Acid Phosphorus Magnesium C-Reactive Protein Total Protein Salicylates 10/05/17 10:54 WBC RBC Hct MCH MCHC RDW [place] % (Auto) [place] # Seg Neutrophils # D-Dimer POC ABG pH POC ABG pCO2 POC ABG pO2 VBG pH Sodium Potassium Chloride Carbon Dioxide BUN Creatinine Glucose POC Glucose 480 H Lactic Acid Phosphorus Magnesium C-Reactive Protein Total Protein Salicylates Chest x-ray: image reviewed (mild hypoventilation; no focal infiltrate) Allied health notes reviewed: RT
--- NOTE | 2017-10-05 13:34 | Progress Note ---
Assessment and Plan 37 YO Female with h/o HTN, DM ws brought to the Ed on account of having been found unresponsive in her home by her son who call in EMS. Upon EMS arrival, the patient was found to be unresponsive with serum glucose above 500. Pt given narcan without improvement. Pt transported to [facility] for evaluation and treatment. Pt seen and evaluated in ED and found to be in respiratory distress, with evidence of DKA and sepsis. - Acute hypoxic respiratory failure: Now extubated and oxygen via N/c - DKA, -Blood sugar still very elevated in the 400s. Restarted insulin drip per protocol. commence Levemir - SIRS Lactic acidosis -RUFUS on IV hydration - Hypernatremia- inproved DVT prophylaxis - Heparin GI prophylaxis - On Pepsid Disposition - Continue ICU care. Optimnize glycemic control and transfer to floor for D/c Subjective Date of service: 10/05/17 Principal diagnosis: Acute Hypoxemic Respiratory Failure; Hyperosmolar non ketotic state Interval history: Pt seen and examined. More awake, but still lethergic. 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 Objective - Constitutional Vitals: Vital Signs - 12hr 10/05/17 10/05/17 10/05/17 01:31 01:41 01:51 Temperature Pulse Rate 112 H 110 H Pulse Rate [ Left Dorsalis Pedis] Pulse Rate [ Left Radial] Pulse Rate [ Right Dorsalis Pedis] Pulse Rate [ Right Radial] Respiratory 20 14 Rate Blood Pressure 111/73 111/73 111/73 O2 Sat by Pulse 99 99 99 Oximetry 10/05/17 10/05/17 10/05/17 02:00 02:11 02:21 Temperature Pulse Rate 108 H 103 H 111 H Pulse Rate [ Left Dorsalis Pedis] Pulse Rate [ Left Radial] Pulse Rate [ Right Dorsalis Pedis] Pulse Rate [ Right Radial] Respiratory 16 17 15 Rate Blood Pressure 121/77 121/77 121/77 O2 Sat by Pulse 100 100 Oximetry 10/05/17 10/05/17 10/05/17 02:31 02:41 02:51 Temperature Pulse Rate 109 H 109 H 108 H Pulse Rate [ Left Dorsalis Pedis] Pulse Rate [ Left Radial] Pulse Rate [ Right Dorsalis Pedis] Pulse Rate [ Right Radial] Respiratory 18 16 16 Rate Blood Pressure 121/77 121/77 121/77 O2 Sat by Pulse 100 100 100 Oximetry 10/05/17 10/05/17 10/05/17 03:00 03:11 03:21 Temperature Pulse Rate 114 H 112 H 108 H Pulse Rate [ Left Dorsalis Pedis] Pulse Rate [ Left Radial] Pulse Rate [ Right Dorsalis Pedis] Pulse Rate [ Right Radial] Respiratory 16 16 16 Rate Blood Pressure 107/61 107/61 107/61 O2 Sat by Pulse 97 100 100 Oximetry 10/05/17 10/05/17 10/05/17 03:31 03:41 03:51 Temperature Pulse Rate 109 H 108 H 98 H Pulse Rate [ 78 Left Dorsalis Pedis] Pulse Rate [ 78 Left Radial] Pulse Rate [ 78 Right Dorsalis Pedis] Pulse Rate [ 78 Right Radial] Respiratory 16 16 16 Rate Blood Pressure 107/61 107/61 107/61 O2 Sat by Pulse 100 100 100 Oximetry 10/05/17 10/05/17 10/05/17 04:00 04:11 04:21 Temperature 98.9 F Pulse Rate 101 H 98 H 102 H Pulse Rate [ Left Dorsalis Pedis] Pulse Rate [ Left Radial] Pulse Rate [ Right Dorsalis Pedis] Pulse Rate [ Right Radial] Respiratory 16 16 16 Rate Blood Pressure 112/57 112/57 112/57 O2 Sat by Pulse 99 99 Oximetry 10/05/17 10/05/17 10/05/17 04:31 04:41 04:51 Temperature Pulse Rate 104 H 95 H 99 H Pulse Rate [ Left Dorsalis Pedis] Pulse Rate [ Left Radial] Pulse Rate [ Right Dorsalis Pedis] Pulse Rate [ Right Radial] Respiratory 16 16 16 Rate Blood Pressure 112/57 112/57 112/57 O2 Sat by Pulse 100 99 100 Oximetry 10/05/17 10/05/17 10/05/17 05:00 05:11 05:21 Temperature Pulse Rate 101 H 101 H 97 H Pulse Rate [ Left Dorsalis Pedis] Pulse Rate [ Left Radial] Pulse Rate [ Right Dorsalis Pedis] Pulse Rate [ Right Radial] Respiratory 16 16 16 Rate Blood Pressure 115/63 115/63 115/63 O2 Sat by Pulse 99 100 100 Oximetry 10/05/17 10/05/17 10/05/17 05:31 05:41 05:51 Temperature Pulse Rate 95 H 100 H 101 H Pulse Rate [ Left Dorsalis Pedis] Pulse Rate [ Left Radial] Pulse Rate [ Right Dorsalis Pedis] Pulse Rate [ Right Radial] Respiratory 16 16 14 Rate Blood Pressure 115/63 115/63 115/63 O2 Sat by Pulse 100 100 97 Oximetry 10/05/17 10/05/17 10/05/17 06:00 06:11 06:21 Temperature Pulse Rate 94 H 94 H 99 H Pulse Rate [ Left Dorsalis Pedis] Pulse Rate [ Left Radial] Pulse Rate [ Right Dorsalis Pedis] Pulse Rate [ Right Radial] Respiratory 16 14 16 Rate Blood Pressure 127/81 127/81 127/81 O2 Sat by Pulse 99 100 100 Oximetry 10/05/17 10/05/17 10/05/17 06:31 06:41 06:51 Temperature Pulse Rate 100 H 96 H 99 H Pulse Rate [ Left Dorsalis Pedis] Pulse Rate [ Left Radial] Pulse Rate [ Right Dorsalis Pedis] Pulse Rate [ Right Radial] Respiratory 16 16 18 Rate Blood Pressure 127/81 127/81 127/81 O2 Sat by Pulse 100 100 100 Oximetry 10/05/17 10/05/17 10/05/17 07:00 07:11 07:21 Temperature Pulse Rate 102 H 97 H 95 H Pulse Rate [ Left Dorsalis Pedis] Pulse Rate [ Left Radial] Pulse Rate [ Right Dorsalis Pedis] Pulse Rate [ Right Radial] Respiratory 18 18 16 Rate Blood Pressure 124/76 124/76 124/76 O2 Sat by Pulse 97 100 100 Oximetry 10/05/17 10/05/17 10/05/17 07:31 07:41 07:51 Temperature Pulse Rate 98 H 99 H 96 H Pulse Rate [ Left Dorsalis Pedis] Pulse Rate [ Left Radial] Pulse Rate [ Right Dorsalis Pedis] Pulse Rate [ Right Radial] Respiratory 16 16 16 Rate Blood Pressure 124/76 124/76 124/76 O2 Sat by Pulse 100 100 100 Oximetry 10/05/17 10/05/17 10/05/17 08:00 08:01 08:11 Temperature 98.6 F Pulse Rate 111 H 107 H Pulse Rate [ Left Dorsalis Pedis] Pulse Rate [ Left Radial] Pulse Rate [ Right Dorsalis Pedis] Pulse Rate [ Right Radial] Respiratory 20 17 Rate Blood Pressure 124/76 124/76 O2 Sat by Pulse Oximetry 10/05/17 10/05/17 10/05/17 08:21 08:31 08:41 Temperature Pulse Rate 106 H 112 H 106 H Pulse Rate [ Left Dorsalis Pedis] Pulse Rate [ Left Radial] Pulse Rate [ Right Dorsalis Pedis] Pulse Rate [ Right Radial] Respiratory 20 17 17 Rate Blood Pressure 124/76 124/76 124/76 O2 Sat by Pulse Oximetry 10/05/17 10/05/17 08:53 12:00 Temperature 98.8 F Pulse Rate Pulse Rate [ Left Dorsalis Pedis] Pulse Rate [ Left Radial] Pulse Rate [ Right Dorsalis Pedis] Pulse Rate [ Right Radial] Respiratory Rate Blood Pressure O2 Sat by Pulse 100 Oximetry General appearance: Present: no acute distress, well-nourished - EENT Eyes: PERRL, EOM intact - Neck Neck: supple, normal ROM - Respiratory Respiratory effort: normal Respiratory: bilateral: CTA - Cardiovascular Rhythm: regular Heart Sounds: Present: S1 & S2. Absent: gallop, rub Extremities: pulses intact, No edema, normal color, Full ROM - Gastrointestinal General gastrointestinal: Present: soft, non-tender, non-distended, normal bowel sounds - Integumentary Integumentary: clear, warm, dry - Musculoskeletal Musculoskeletal: 1, strength equal bilaterally - Neurologic Neurologic: moves all extremities - Psychiatric Psychiatric: appropriate mood/affect, intact judgment & insight - Labs CBC & Chem 7: 10/03/17 04:22 10/05/17 04:38 Labs: Abnormal lab results 10/04/17 10/04/17 10/04/17 Range/Units 07:12 13:02 17:28 Potassium (3.6-5.0) mmol/L Chloride (98-107) mmol/L Carbon Dioxide (22-30) mmol/L BUN (7-17) mg/dL Creatinine (0.7-1.2) mg/dL Glucose (65-100) mg/dL POC Glucose 250 H 285 H 398 H (70-105) 10/04/17 10/04/17 10/05/17 Range/Units 21:22 21:24 01:57 Potassium (3.6-5.0) mmol/L Chloride (98-107) mmol/L Carbon Dioxide (22-30) mmol/L BUN (7-17) mg/dL Creatinine (0.7-1.2) mg/dL Glucose (65-100) mg/dL POC Glucose 440 H 395 H 447 H (70-105) 10/05/17 10/05/17 10/05/17 Range/Units 04:38 07:24 10:54 Potassium 5.5 H D (3.6-5.0) mmol/L Chloride 113.4 H (98-107) mmol/L Carbon Dioxide 15 L (22-30) mmol/L BUN 31 H (7-17) mg/dL Creatinine 2.4 H (0.7-1.2) mg/dL Glucose 501 H* (65-100) mg/dL POC Glucose 430 H 480 H (70-105)
[2017-10-05] MEDS: TRADJENTA PO SCH (14:50)
--- NOTE | 2017-10-05 15:44 | Ultrasound Report ---
FINAL REPORT EXAM: US RENAL BILAT HISTORY: RUFUS TECHNIQUE: Longitudinal and transverse grayscale sonographic images were performed FINDINGS: The liver is echogenic. There is extremely limited assessment of the right kidney measuring approximately 10.7 centimeters in length. Left kidney measures 10.4 centimeters with 1.7 centimeter cortical thickness. Normal cortical echogenicity without hydronephrosis, mass lesion or stone. Urinary bladder is mildly distended. IMPRESSION: Extremely limited exam. Grossly, no acute abnormality identified.
[2017-10-05] MEDS: NovoLIN R 100 UNITS in NACL 0.9% 99 ML IV SCH (23:06)
[2017-10-06] MEDS: ZOSYN/NS 3.375GM/50ML 3.375 GM/50 ML BAG IV SCH (03:22)
[2017-10-06] MEDS: NovoLIN R 100 UNITS in NACL 0.9% 99 ML IV SCH ×2 (04:00→07:10)
[2017-10-06 04:28] LABS: Basophils % (Auto) 0.4 % (0.0-1.8); Eosinophils % (Auto) 6.8 % (0.0-4.3); Hematocrit 36.3 % (30.3-42.9); Hemoglobin 11.8 gm/dl (10.1-14.3); Mean Corpuscular HGB Conc 33 % (30-34); Mean Corpuscular Volume 75 fl (79-97); Platelet Count 152 K/mm3 (140-440); Red Blood Count 4.83 M/mm3 (3.65-5.03); Red Cell Distribution Width 16.2 % (13.2-15.2); White Blood Count 9.7 K/mm3 (4.5-11.0)
[2017-10-06 04:35] LABS: Mean Corpuscular Hemoglobin 25 pg (28-32)
[2017-10-06 04:47] LABS: Magnesium 2.5 mg/dL (1.7-2.3); Phosphorous 2.7 mg/dL (2.5-4.5)
--- NOTE | 2017-10-06 07:30 | XRay Report ---
AP CHEST: HISTORY: Followup respiratory failure AP view of the chest demonstrates a normal mediastinal and cardiac contour with clear lungs and normal bony and soft tissue structures. IMPRESSION: Unremarkable AP chest. No change since yesterday's exam.
--- NOTE | 2017-10-06 07:33 | Vascular Lab Report ---
LOWER EXTREMITY VENOUS DUPLEX: REASON FOR EXAM: Swelling of the lower extremities. COMMENTS ON THE RIGHT: All veins visualized are freely compressible without evidence of internal echogenicity. Flow is spontaneous and phasic throughout. COMMENTS ON THE LEFT: All veins visualized are freely compressible without evidence of internal echogenicity. Flow is spontaneous and phasic throughout. IMPRESSION: No evidence of acute or chronic deep venous thrombosis in either lower extremity.
[2017-10-06 08:43] LABS: Calcium 8.7 mg/dL (8.4-10.2); Chloride 115.3 mmol/L (98-107); Potassium 3.7 mmol/L (3.6-5.0)
[2017-10-06] MEDS ORDERED: ZOSYN/NS 3.375GM/50ML 3.375 GM/50 ML BAG IV SCH (09:00)
[2017-10-06] MEDS ORDERED: D5/0.45NS 1,000 ML IV SCH (09:00)
[2017-10-06] MEDS: HEPARIN SUB-Q SCH ×3 (09:34→23:04)
[2017-10-06] MEDS: TRADJENTA PO SCH (09:35)
[2017-10-06] MEDS: PEPCID IV SCH (09:35)
[2017-10-06] MEDS ORDERED: INSULIN REGULAR SQ SCH (10:15)
[2017-10-06] MEDS ORDERED: INSULIN ISOPHANE SQ SCH (10:15)
--- NOTE | 2017-10-06 12:12 | Cat Scan Report ---
CT NECK WITH CONTRAST: HISTORY: Left mandibular abscess. TECHNIQUE: Helical CT following IV contrast. Sagittal and coronal reformatted images. FINDINGS: The parotid and submandibular glands are normal. The carotid sheaths are intact. There is no evidence of adenopathy within the neck. The thyroid gland is normal. The glottic structures are normal. The airway is patent. Strap musculature is unremarkable. Hyoid bone and thyroid cartilage are intact. Periapical lucency is identified surrounding 2 left mandibular incisors and a left mandibular molar which are consistent with periapical tooth abscesses. No soft tissue extension of infection or soft tissue abscess is appreciated. IMPRESSION: Periapical tooth abscesses on the left side of the mandible as described above. No soft tissue abscess.
[2017-10-06] MEDS: NOVOLOG SUB-Q SCH ×2 (12:42→17:27)
--- NOTE | 2017-10-06 15:14 | Progress Note ---
Assessment and Plan Assessment and plan: 37 YO Female with h/o HTN, DM ws brought to the Ed on account of having been found unresponsive in her home by her son who call in EMS. Upon EMS arrival, the patient was found to be unresponsive with serum glucose above 500. Pt given narcan without improvement. Pt transported to [facility] for evaluation and treatment. Pt seen and evaluated in ED and found to be in respiratory distress, with evidence of DKA and sepsis. - Acute hypoxic respiratory failure: Now extubated and oxygen via N/c continues to improve since extubation - DKA, -Blood sugar improved, will transition to long acting insulin. Discussed with Nursing staff to review the Home meds. -Counselling provided - SIRS Lactic acidosis Metabolic Acidosis * secondary to DKA, improving. -RUFUS on IV hydration-secondary to vasomotor nephropathy, Improving - Hypernatremia- inproved left facial swelling with discoloration * R/O abscess. Doubt this, likely Acanthosis Nigrans, Morbid Obesity * Certified Massage Therapist counselling Hyperkalemia * Improved Hypernatremia * Will monitor closely DVT prophylaxis - Heparin GI prophylaxis - On Pepsid Disposition - Transition to medical surgical floor. History Interval history: Patient seen and examined, in no acute distress. Reports no chest pain, nausea, vomiting , diarrhea. Hospitalist Physical - Physical exam Narrative exam: VITAL SIGNS: Reviewed. GENERAL: The patient appeared well nourished and normally developed. Vital signs as documented. HEAD: No signs of head trauma. EYES: Pupils are equal. Extraocular motions intact. EARS: Hearing grossly intact. MOUTH: Oropharynx is normal. NECK: No adenopathy, no JVD. CHEST: Chest with clear breath sounds bilaterally. No wheezes, rales, or rhonchi. CARDIAC: Regular rate and rhythm. S1 and S2, without murmurs, gallops, or rubs. VASCULAR: No Edema. Peripheral pulses normal and equal in all extremities. ABDOMEN: Soft, without detectable tenderness. No sign of distention. No rebound or guarding, and no masses palpated. Bowel Sounds normal. MUSCULOSKELETAL: Good range of motion of all major joints. Extremities without clubbing, cyanosis or edema. NEUROLOGIC EXAM: Alert and oriented x 3. No focal sensory or strength deficits. Speech normal. Follows commands. PSYCHIATRIC: Mood normal. SKIN: left facial swelling and discoloration. - Constitutional Vitals: Temp Pulse Resp BP Pulse Ox 98 F 90 16 122/78 99 10/06/17 12:00 10/06/17 15:01 10/06/17 15:01 10/06/17 11:00 10/06/17 15:01 General appearance: Present: no acute distress, well-nourished Results - Labs CBC & Chem 7: 10/06/17 03:58 10/06/17 07:54 Labs: Laboratory Last Values WBC 9.7 K/mm3 (4.5-11.0) 10/06/17 03:58 RBC 4.83 M/mm3 (3.65-5.03) 10/06/17 03:58 Hgb 11.8 gm/dl (10.1-14.3) 10/06/17 03:58 Hct 36.3 % (30.3-42.9) D 10/06/17 03:58 MCV 75 fl (79-97) L 10/06/17 03:58 MCH 25 pg (28-32) L 10/06/17 03:58 MCHC 33 % (30-34) 10/06/17 03:58 RDW 16.2 % (13.2-15.2) H 10/06/17 03:58 Plt Count 152 K/mm3 (140-440) 10/06/17 03:58 Lymph % (Auto) 23.8 % (13.4-35.0) 10/06/17 03:58 Early % (Auto) 15.1 % (0.0-7.3) H 10/06/17 03:58 Eos % (Auto) 6.8 % (0.0-4.3) H 10/06/17 03:58 Baso % (Auto) 0.4 % (0.0-1.8) 10/06/17 03:58 Lymph # 2.3 K/mm3 (1.2-5.4) 10/06/17 03:58 Early # 1.5 K/mm3 (0.0-0.8) H 10/06/17 03:58 Eos # 0.7 K/mm3 (0.0-0.4) H 10/06/17 03:58 Baso # 0.0 K/mm3 (0.0-0.1) 10/06/17 03:58 Seg Neutrophils % 53.9 % (40.0-70.0) 10/06/17 03:58 Seg Neutrophils # 5.2 K/mm3 (1.8-7.7) 10/06/17 03:58 D-Dimer 709.27 ng/mlDDU (0-234) H 10/03/17 23:53 POC ABG pH 7.352 (7.35-7.45) 10/04/17 11:09 POC ABG pCO2 38.2 (35-45) 10/04/17 11:09 POC ABG pO2 142 (80-105) H 10/04/17 11:09 POC ABG HCO3 21.2 10/04/17 11:09 POC ABG Total CO2 22 10/04/17 11:09 POC ABG O2 Sat 99 10/04/17 11:09 POC ABG Base Excess -4 10/04/17 11:09 VBG pH 7.211 (7.320-7.420) L 10/03/17 05:18 FiO2 35 % 10/04/17 11:09 Sodium 152 mmol/L (137-145) H 10/06/17 07:54 Potassium 3.7 mmol/L (3.6-5.0) D 10/06/17 07:54 Chloride 115.3 mmol/L (98-107) H 10/06/17 07:54 Carbon Dioxide 21 mmol/L (22-30) L 10/06/17 07:54 Anion Gap 19 mmol/L 10/06/17 07:54 BUN 22 mg/dL (7-17) H 10/06/17 07:54 Creatinine 1.5 mg/dL (0.7-1.2) H 10/06/17 07:54 Estimated GFR 47 ml/min 10/06/17 07:54 BUN/Creatinine Ratio 15 % 10/06/17 07:54 Glucose 143 mg/dL (65-100) H 10/06/17 07:54 POC Glucose 170 (70-105) H 10/06/17 11:20 Lactic Acid 2.70 mmol/L (0.7-2.0) H* 10/03/17 14:32 Calcium 8.7 mg/dL (8.4-10.2) 10/06/17 07:54 Phosphorus 2.70 mg/dL (2.5-4.5) 10/06/17 03:58 Magnesium 2.50 mg/dL (1.7-2.3) H 10/06/17 03:58 Total Bilirubin 0.60 mg/dL (0.1-1.2) 10/03/17 04:22 AST 11 units/L (5-40) 10/03/17 04:22 ALT 13 units/L (7-56) 10/03/17 04:22 Alkaline Phosphatase 107 units/L (35-129) 10/03/17 04:22 Troponin T < 0.010 ng/mL (0.00-0.029) 10/03/17 14:32 C-Reactive Protein 6.20 mg/dL (0.00-1.30) H 10/03/17 14:32 Total Protein 8.4 g/dL (6.3-8.2) H 10/03/17 04:22 Albumin 4.5 g/dL (3.9-5) 10/03/17 04:22 Albumin/Globulin Ratio 1.2 % 10/03/17 04:22 TSH 0.974 mlU/mL (0.270-4.200) 10/03/17 04:22 HCG, Qual Negative (Negative) 10/03/17 05:18 Urine Color Red (Yellow) 10/03/17 05:43 Urine Turbidity Clear (Clear) 10/03/17 05:43 Urine pH 6.0 (5.0-7.0) 10/03/17 05:43 Ur Specific [place] 1.025 (1.003-1.030) 10/03/17 05:43 Urine Protein <15 mg/dl mg/dL (Negative) 10/03/17 05:43 Urine Glucose (UA) >=500 mg/dL (Negative) 10/03/17 05:43 Urine Ketones Tr mg/dL (Negative) 10/03/17 05:43 Urine Blood Mod (Negative) 10/03/17 05:43 Urine Nitrite Neg (Negative) 10/03/17 05:43 Urine Bilirubin Neg (Negative) 10/03/17 05:43 Urine Urobilinogen < 2.0 mg/dL (<2.0) 10/03/17 05:43 Ur Leukocyte Esterase Neg (Negative) 10/03/17 05:43 Urine WBC (Auto) < 1.0 /HPF (0.0-6.0) 10/03/17 05:43 Urine RBC (Auto) 1.0 /HPF (0.0-6.0) 10/03/17 05:43 U Epithel Cells (Auto) < 1.0 /HPF (0-13.0) 10/03/17 05:43 Urine Mucus Few /HPF 10/03/17 05:43 Salicylates < 0.3 mg/dL (2.8-20.0) L 10/03/17 04:22 Urine Opiates Screen Presumptive negative 10/03/17 05:43 Urine Methadone Screen Presumptive negative 10/03/17 05:43 Acetaminophen < 15.0 ug/mL (10.0-30.0) 10/03/17 05:18 Ur Barbiturates Screen Presumptive positive 10/03/17 05:43 Ur Phencyclidine Scrn Presumptive negative 10/03/17 05:43 Ur Amphetamines Screen Presumptive negative 10/03/17 05:43 U Benzodiazepines Scrn Presumptive positive 10/03/17 05:43 Urine Cocaine Screen Presumptive negative 10/03/17 05:43 U Marijuana (THC) Screen Presumptive negative 10/03/17 05:43 Drugs of Abuse Note Disclamer 10/03/17 05:43 Plasma/Serum Alcohol < 0.01 gm% (0-0.07) 10/03/17 04:22
--- NOTE | 2017-10-06 15:17 | Progress Note ---
Assessment and Plan 37 YO Female with h/o HTN, DM ws brought to the Ed on account of having been found unresponsive in her home by her son who call in EMS. Upon EMS arrival, the patient was found to be unresponsive with serum glucose above 500. Pt given narcan without improvement. Pt transported to [facility] for evaluation and treatment. Pt seen and evaluated in ED and found to be in respiratory distress, with evidence of DKA and sepsis. - Acute hypoxic respiratory failure: Now extubated and oxygen via N/cs/p MVS. Extubated and stable - DKA, - SIRS -Lactic acidosis -RUFUS - Hypernatremia- Continue with glycemic control VTE prophylaxis Steady carb diet Increase activity Diabetic education Monitor electrolytes and renal function OK to transfer out of the ICU Subjective Date of service: 10/06/17 Principal diagnosis: Acute Hypoxemic Respiratory Failure; Hyperosmolar non ketotic state Objective - Exam Narrative Exam: Extubated on NC 2l/min, not in any respiratory distress The patient is morbidly obese. Vital signs as documented. Head exam is unremarkable. No scleral icterus . Neck is without jugular venous distension, thyromegaly, or carotid bruits. Lungs are clear to auscultation. Cardiac exam reveals regular rate and Rhythm. First and second heart sounds normal. No murmurs, rubs or gallops. Abdominal exam reveals normal bowel sounds, no masses, no organomegaly and no aortic enlargement. Extremities are nonedematous and both femoral and pedal pulses are normal. MEDIA ASSISTANT: alert and oriented. Vital Signs - 12hr 10/06/17 10/06/17 10/06/17 04:00 04:01 04:31 Temperature 98.8 F Pulse Rate 93 H Pulse Rate [ 97 H Left Dorsalis Pedis] Respiratory 16 17 Rate Blood Pressure 131/73 O2 Sat by Pulse 99 100 Oximetry 10/06/17 10/06/17 10/06/17 05:01 06:00 07:00 Temperature Pulse Rate 94 H 99 H 92 H Pulse Rate [ Left Dorsalis Pedis] Respiratory 17 18 21 Rate Blood Pressure 138/69 129/69 130/72 O2 Sat by Pulse 97 96 96 Oximetry 10/06/17 10/06/17 10/06/17 08:00 09:00 10:00 Temperature 98.7 F Pulse Rate 89 91 H 91 H Pulse Rate [ Left Dorsalis Pedis] Respiratory 16 17 15 Rate Blood Pressure 139/81 130/76 137/81 O2 Sat by Pulse 99 96 Oximetry 10/06/17 10/06/17 10/06/17 11:00 12:00 12:21 Temperature 98 F Pulse Rate 90 92 H Pulse Rate [ Left Dorsalis Pedis] Respiratory 15 14 Rate Blood Pressure 122/78 O2 Sat by Pulse 97 99 Oximetry 10/06/17 10/06/17 10/06/17 13:01 14:01 15:01 Temperature Pulse Rate 91 H 99 H 90 Pulse Rate [ Left Dorsalis Pedis] Respiratory 18 16 16 Rate Blood Pressure O2 Sat by Pulse 97 97 99 Oximetry Constitutional: no acute distress, alert Eyes: non-icteric ENT: oropharynx moist Neck: supple, no lymphadenopathy, no JVD, other (no thyromegaly) Effort: normal Ascultation: Bilateral: clear, diminished breath sounds, rhonchi (scant in bases ) Percussion: Bilateral: not dull Cardiovascular: regular rate and rhythm, other (no rubs / murmurs) Gastrointestinal: normoactive bowel sounds, soft, non-tender, non-distended, other (No HSM) Integumentary: normal Extremities: no cyanosis, no edema, pulses normal, no ischemia or petechiae Neurologic: normal mental status, non-focal exam, pupils equal and round, motor strength normal and Psychiatric: mood appropriate, affect normal CBC and BMP: 10/06/17 03:58 10/06/17 07:54 ABG, PT/INR, D-dimer: ABG POC ABG pH 7.352 (7.35-7.45) 10/04/17 11:09 POC ABG pCO2 38.2 (35-45) 10/04/17 11:09 POC ABG pO2 142 (80-105) H 10/04/17 11:09 POC ABG HCO3 21.2 10/04/17 11:09 POC ABG Total CO2 22 10/04/17 11:09 POC ABG O2 Sat 99 10/04/17 11:09 PT/INR, D-dimer D-Dimer 709.27 ng/mlDDU (0-234) H 10/03/17 23:53 Abnormal lab findings: Abnormal Labs 10/03/17 10/03/17 10/03/17 04:14 04:22 04:22 WBC 13.8 H RBC 5.13 H Hct 43.6 H MCV MCH 24 L MCHC 29 L RDW 17.4 H Delta % (Auto) 8.4 H Eos % (Auto) Delta # 1.2 H Eos # Seg Neutrophils # 8.9 H D-Dimer POC ABG pH POC ABG pCO2 POC ABG pO2 VBG pH Sodium 128 L Potassium Chloride 86.0 L Carbon Dioxide 18 L BUN 18 H Creatinine 1.7 H Glucose 1396 H* POC Glucose > 500 H Lactic Acid Phosphorus Magnesium 2.50 H C-Reactive Protein Total Protein 8.4 H Salicylates 10/03/17 10/03/17 10/03/17 04:22 04:22 05:18 WBC RBC Hct MCV MCH MCHC RDW Delta % (Auto) Eos % (Auto) Delta # Eos # Seg Neutrophils # D-Dimer POC ABG pH POC ABG pCO2 POC ABG pO2 VBG pH 7.211 L Sodium Potassium Chloride Carbon Dioxide BUN Creatinine Glucose POC Glucose Lactic Acid 7.20 H* Phosphorus Magnesium C-Reactive Protein Total Protein Salicylates < 0.3 L 10/03/17 10/03/17 10/03/17 05:18 05:32 06:28 WBC RBC Hct MCV MCH MCHC RDW Delta % (Auto) Eos % (Auto) Delta # Eos # Seg Neutrophils # D-Dimer POC ABG pH 7.273 L POC ABG pCO2 48.0 H POC ABG pO2 412 H VBG pH Sodium 131 L Potassium 6.7 H* D Chloride 90.2 L Carbon Dioxide 19 L BUN 18 H Creatinine 1.6 H Glucose 1313 H* POC Glucose Lactic Acid Phosphorus 9.60 H Magnesium 2.50 H C-Reactive Protein Total Protein Salicylates 10/03/17 10/03/17 10/03/17 06:29 06:29 07:58 WBC RBC Hct MCV MCH MCHC RDW Delta % (Auto) Eos % (Auto) Delta # Eos # Seg Neutrophils # D-Dimer POC ABG pH POC ABG pCO2 POC ABG pO2 VBG pH Sodium Potassium 5.9 H Chloride Carbon Dioxide 20 L BUN 18 H Creatinine 1.5 H Glucose 1146 H* POC Glucose > 500 H Lactic Acid 3.30 H* Phosphorus Magnesium 2.60 H C-Reactive Protein Total Protein Salicylates 10/03/17 10/03/17 10/03/17 08:39 08:41 09:26 WBC RBC Hct MCV MCH MCHC RDW Delta % (Auto) Eos % (Auto) Delta # Eos # Seg Neutrophils # D-Dimer POC ABG pH POC ABG pCO2 POC ABG pO2 VBG pH Sodium 148 H D Potassium Chloride 110.9 H Carbon Dioxide 18 L BUN Creatinine 1.4 H Glucose 757 H* POC Glucose > 500 H > 500 H Lactic Acid Phosphorus Magnesium C-Reactive Protein Total Protein Salicylates 10/03/17 10/03/17 10/03/17 10:12 11:25 12:03 WBC RBC Hct MCV MCH MCHC RDW Delta % (Auto) Eos % (Auto) Delta # Eos # Seg Neutrophils # D-Dimer POC ABG pH POC ABG pCO2 POC ABG pO2 VBG pH Sodium Potassium Chloride Carbon Dioxide BUN Creatinine Glucose POC Glucose 492 H 468 H 300 H Lactic Acid Phosphorus Magnesium C-Reactive Protein Total Protein Salicylates 10/03/17 10/03/17 10/03/17 13:17 14:17 14:32 WBC RBC Hct MCV MCH MCHC RDW Delta % (Auto) Eos % (Auto) Delta # Eos # Seg Neutrophils # D-Dimer POC ABG pH POC ABG pCO2 POC ABG pO2 VBG pH Sodium 157 H D Potassium Chloride 117.3 H Carbon Dioxide 21 L BUN Creatinine 1.9 H Glucose 101 H POC Glucose 307 H 116 H Lactic Acid Phosphorus Magnesium C-Reactive Protein Total Protein Salicylates 10/03/17 10/03/17 10/03/17 14:32 14:32 15:47 WBC RBC Hct MCV MCH MCHC RDW Delta % (Auto) Eos % (Auto) Delta # Eos # Seg Neutrophils # D-Dimer POC ABG pH POC ABG pCO2 POC ABG pO2 VBG pH Sodium Potassium Chloride Carbon Dioxide BUN Creatinine Glucose POC Glucose 176 H Lactic Acid 2.70 H* Phosphorus Magnesium C-Reactive Protein 6.20 H Total Protein Salicylates 10/03/17 10/03/17 10/03/17 16:32 16:35 17:48 WBC RBC Hct MCV MCH MCHC RDW Delta % (Auto) Eos % (Auto) Delta # Eos # Seg Neutrophils # D-Dimer POC ABG pH 7.298 L POC ABG pCO2 POC ABG pO2 111 H VBG pH Sodium Potassium Chloride Carbon Dioxide BUN Creatinine Glucose POC Glucose 208 H 212 H Lactic Acid Phosphorus Magnesium C-Reactive Protein Total Protein Salicylates 10/03/17 10/03/17 10/03/17 18:30 19:52 22:09 WBC RBC Hct MCV MCH MCHC RDW Delta % (Auto) Eos % (Auto) Delta # Eos # Seg Neutrophils # D-Dimer POC ABG pH POC ABG pCO2 POC ABG pO2 VBG pH Sodium Potassium Chloride Carbon Dioxide BUN Creatinine Glucose POC Glucose 207 H 151 H 157 H Lactic Acid Phosphorus Magnesium C-Reactive Protein Total Protein Salicylates 10/03/17 10/03/17 10/03/17 22:14 23:32 23:53 WBC RBC Hct MCV MCH MCHC RDW Delta % (Auto) Eos % (Auto) Delta # Eos # Seg Neutrophils # D-Dimer 709.27 H POC ABG pH POC ABG pCO2 POC ABG pO2 VBG pH Sodium 156 H Potassium Chloride 116.9 H Carbon Dioxide 20 L BUN 19 H Creatinine 2.4 H Glucose 179 H POC Glucose 270 H Lactic Acid Phosphorus Magnesium C-Reactive Protein Total Protein Salicylates 10/04/17 10/04/17 10/04/17 00:27 01:05 02:08 WBC RBC Hct MCV MCH MCHC RDW Delta % (Auto) Eos % (Auto) Delta # Eos # Seg Neutrophils # D-Dimer POC ABG pH POC ABG pCO2 POC ABG pO2 VBG pH Sodium Potassium Chloride Carbon Dioxide BUN Creatinine Glucose POC Glucose 243 H 191 H 140 H Lactic Acid Phosphorus Magnesium C-Reactive Protein Total Protein Salicylates 10/04/17 10/04/17 10/04/17 03:04 04:10 04:47 WBC RBC Hct MCV MCH MCHC RDW Delta % (Auto) Eos % (Auto) Delta # Eos # Seg Neutrophils # D-Dimer POC ABG pH POC ABG pCO2 POC ABG pO2 VBG pH Sodium 155 H Potassium Chloride 116.7 H Carbon Dioxide 19 L BUN 19 H Creatinine 2.4 H Glucose 233 H POC Glucose 126 H 195 H Lactic Acid Phosphorus Magnesium C-Reactive Protein Total Protein Salicylates 10/04/17 10/04/17 10/04/17 05:16 06:17 07:12 WBC RBC Hct MCV MCH MCHC RDW Delta % (Auto) Eos % (Auto) Delta # Eos # Seg Neutrophils # D-Dimer POC ABG pH POC ABG pCO2 POC ABG pO2 VBG pH Sodium Potassium Chloride Carbon Dioxide BUN Creatinine Glucose POC Glucose 228 H 302 H 250 H Lactic Acid Phosphorus Magnesium C-Reactive Protein Total Protein Salicylates 10/04/17 10/04/17 10/04/17 08:35 09:31 11:09 WBC RBC Hct MCV MCH MCHC RDW Delta % (Auto) Eos % (Auto) Delta # Eos # Seg Neutrophils # D-Dimer POC ABG pH POC ABG pCO2 POC ABG pO2 142 H VBG pH Sodium Potassium Chloride Carbon Dioxide BUN Creatinine Glucose POC Glucose 205 H 142 H Lactic Acid Phosphorus Magnesium C-Reactive Protein Total Protein Salicylates 10/04/17 10/04/17 10/04/17 11:19 11:54 13:02 WBC RBC Hct MCV MCH MCHC RDW Delta % (Auto) Eos % (Auto) Delta # Eos # Seg Neutrophils # D-Dimer POC ABG pH POC ABG pCO2 POC ABG pO2 VBG pH Sodium Potassium Chloride Carbon Dioxide BUN Creatinine Glucose POC Glucose 177 H 208 H 285 H Lactic Acid Phosphorus Magnesium C-Reactive Protein Total Protein Salicylates 10/04/17 10/04/17 10/04/17 17:28 21:22 21:24 WBC RBC Hct MCV MCH MCHC RDW Delta % (Auto) Eos % (Auto) Delta # Eos # Seg Neutrophils # D-Dimer POC ABG pH POC ABG pCO2 POC ABG pO2 VBG pH Sodium Potassium Chloride Carbon Dioxide BUN Creatinine Glucose POC Glucose 398 H 440 H 395 H Lactic Acid Phosphorus Magnesium C-Reactive Protein Total Protein Salicylates 10/05/17 10/05/17 10/05/17 01:57 04:38 07:24 WBC RBC Hct MCV MCH MCHC RDW Delta % (Auto) Eos % (Auto) Delta # Eos # Seg Neutrophils # D-Dimer POC ABG pH POC ABG pCO2 POC ABG pO2 VBG pH Sodium Potassium 5.5 H D Chloride 113.4 H Carbon Dioxide 15 L BUN 31 H Creatinine 2.4 H Glucose 501 H* POC Glucose 447 H 430 H Lactic Acid Phosphorus Magnesium C-Reactive Protein Total Protein Salicylates 10/05/17 10/05/17 10/05/17 10:54 13:22 15:23 WBC RBC Hct MCV MCH MCHC RDW Delta % (Auto) Eos % (Auto) Delta # Eos # Seg Neutrophils # D-Dimer POC ABG pH POC ABG pCO2 POC ABG pO2 VBG pH Sodium Potassium Chloride Carbon Dioxide BUN Creatinine Glucose POC Glucose 480 H 416 H 414 H Lactic Acid Phosphorus Magnesium C-Reactive Protein Total Protein Salicylates 10/05/17 10/05/17 10/06/17 21:19 23:04 00:10 WBC RBC Hct MCV MCH MCHC RDW [place] % (Auto) Eos % (Auto) Delta # Eos # Seg Neutrophils # D-Dimer POC ABG pH POC ABG pCO2 POC ABG pO2 VBG pH Sodium Potassium Chloride Carbon Dioxide BUN Creatinine Glucose POC Glucose 412 H 344 H 279 H Lactic Acid Phosphorus Magnesium C-Reactive Protein Total Protein Salicylates 10/06/17 10/06/17 10/06/17 01:43 03:58 03:58 WBC RBC Hct MCV 75 L MCH 25 L MCHC RDW 16.2 H Delta % (Auto) 15.1 H Eos % (Auto) 6.8 H Delta # 1.5 H Eos # 0.7 H Seg Neutrophils # D-Dimer POC ABG pH POC ABG pCO2 POC ABG pO2 VBG pH Sodium Potassium Chloride Carbon Dioxide BUN Creatinine Glucose POC Glucose 138 H Lactic Acid Phosphorus Magnesium 2.50 H C-Reactive Protein Total Protein Salicylates 10/06/17 10/06/17 10/06/17 03:59 05:13 06:15 WBC RBC Hct MCV MCH MCHC RDW Delta % (Auto) Eos % (Auto) Delta # Eos # Seg Neutrophils # D-Dimer POC ABG pH POC ABG pCO2 POC ABG pO2 VBG pH Sodium Potassium Chloride Carbon Dioxide BUN Creatinine Glucose POC Glucose 108 H 134 H 157 H Lactic Acid Phosphorus Magnesium C-Reactive Protein Total Protein Salicylates 10/06/17 10/06/17 10/06/17 07:54 08:18 09:34 WBC RBC Hct MCV MCH MCHC RDW Delta % (Auto) Eos % (Auto) Delta # Eos # Seg Neutrophils # D-Dimer POC ABG pH POC ABG pCO2 POC ABG pO2 VBG pH Sodium 152 H Potassium Chloride 115.3 H Carbon Dioxide 21 L BUN 22 H Creatinine 1.5 H Glucose 143 H POC Glucose 152 H 146 H Lactic Acid Phosphorus Magnesium C-Reactive Protein Total Protein Salicylates 10/06/17 11:20 WBC RBC Hct MCV MCH MCHC RDW [place] % (Auto) Eos % (Auto) Delta # Eos # Seg Neutrophils # D-Dimer POC ABG pH POC ABG pCO2 POC ABG pO2 VBG pH Sodium Potassium Chloride Carbon Dioxide BUN Creatinine Glucose POC Glucose 170 H Lactic Acid Phosphorus Magnesium C-Reactive Protein Total Protein Salicylates Allied health notes reviewed: RT
[2017-10-07] MEDS: NOVOLOG SUB-Q SCH ×5 (00:32→22:11)
[2017-10-07 05:20] LABS: Basophils % (Auto) 0.6 % (0.0-1.8); Hematocrit 37.6 % (30.3-42.9); Mean Corpuscular HGB Conc 32 % (30-34); Mean Corpuscular Volume 76 fl (79-97); Platelet Count 149 K/mm3 (140-440); Red Blood Count 4.95 M/mm3 (3.65-5.03); Red Cell Distribution Width 16.5 % (13.2-15.2); White Blood Count 6.5 K/mm3 (4.5-11.0)
[2017-10-07 05:23] LABS: Mean Corpuscular Hemoglobin 24 pg (28-32)
[2017-10-07 05:42] LABS: Calcium 8.9 mg/dL (8.4-10.2); Chloride 112.1 mmol/L (98-107); Potassium 3.5 mmol/L (3.6-5.0)
[2017-10-07] MEDS: TRADJENTA PO SCH (09:43)
[2017-10-07] MEDS: HEPARIN SUB-Q SCH ×2 (09:43→22:10)
[2017-10-07] MEDS: PEPCID PO SCH (09:43)
--- NOTE | 2017-10-07 11:54 | Progress Note ---
Assessment and Plan Assessment and plan: 37 YO Female with MO,HTN, DM who was found down and unresponsive by her son who then notified EMS. Upon EMS arrival, the patient was found to be unresponsive with serum glucose above 500. Found to be in DKA with respiratory distress and confusion, and intubated in ER, has since been extubated and rx for DKA, doing better - Acute hypoxic respiratory failure on MV <96 hours now extubated, and now resolved - DKA/Uncontrolled DM continue sq insulins, DKA now resolved, continue to rx hyperglycemia - SIRS Lactic acidosis Metabolic Acidosis secondary to DKA, resolved metabolic encephalopathy due to dka, now resolved -RUFUS on IV hydration-secondary to vasomotor nephropathy/ATN -resolving, continue IVF - Hypernatremia-/Dehydration restart half NS left facial swelling with discoloration abscess was ruled out likely Acanthosis Nigrans, Morbid Obesity 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 History Interval history: She feels well today and will like to go home soon. Review of systems Constitutional: No fevers, no malaise, no joint pains CVS: No chest pain, no orthopnea, no dyspnea on exertion, no pedal edema GI: No abdominal pain, no diarrhea, no vomiting, no constipation Respiratory: No shortness of breath, no wheezing, no coughing Hospitalist Physical - Constitutional Vitals: Temp Pulse Resp BP Pulse Ox 98.1 F 99 H 18 105/73 98 10/07/17 07:39 10/06/17 22:00 10/07/17 07:39 10/07/17 07:39 10/06/17 22:00 General appearance: Present: no acute distress, well-nourished - EENT Eyes: Present: PERRL, EOM intact ENT: hearing intact, clear oral mucosa, poor dentition - Neck Neck: Present: supple, normal ROM - Respiratory Respiratory effort: normal Respiratory: bilateral: CTA - Cardiovascular Rhythm: regular Heart Sounds: Present: S1 & S2 - Extremities Extremities: no ischemia, No edema Peripheral Pulses: within normal limits - Abdominal General gastrointestinal: soft, non-tender, non-distended, normal bowel sounds - Integumentary Integumentary: Present: clear, warm, dry - Psychiatric Psychiatric: appropriate mood/affect, intact judgment & insight, cooperative - Neurologic Neurologic: CNII-XII intact, no focal deficits, moves all extremities, gait normal Results - Labs CBC & Chem 7: 10/07/17 04:11 10/07/17 04:11 Labs: Laboratory Last Values WBC 6.5 K/mm3 (4.5-11.0) 10/07/17 04:11 RBC 4.95 M/mm3 (3.65-5.03) 10/07/17 04:11 Hgb 12.0 gm/dl (10.1-14.3) 10/07/17 04:11 Hct 37.6 % (30.3-42.9) 10/07/17 04:11 MCV 76 fl (79-97) L 10/07/17 04:11 MCH 24 pg (28-32) L 10/07/17 04:11 MCHC 32 % (30-34) 10/07/17 04:11 RDW 16.5 % (13.2-15.2) H 10/07/17 04:11 Plt Count 149 K/mm3 (140-440) 10/07/17 04:11 Lymph % (Auto) 32.1 % (13.4-35.0) 10/07/17 04:11 [place] % (Auto) 10.8 % (0.0-7.3) H 10/07/17 04:11 Eos % (Auto) 6.0 % (0.0-4.3) H 10/07/17 04:11 Baso % (Auto) 0.6 % (0.0-1.8) 10/07/17 04:11 Lymph # 2.1 K/mm3 (1.2-5.4) 10/07/17 04:11 [place] # 0.7 K/mm3 (0.0-0.8) 10/07/17 04:11 Eos # 0.4 K/mm3 (0.0-0.4) 10/07/17 04:11 Baso # 0.0 K/mm3 (0.0-0.1) 10/07/17 04:11 Seg Neutrophils % 50.5 % (40.0-70.0) 10/07/17 04:11 Seg Neutrophils # 3.3 K/mm3 (1.8-7.7) 10/07/17 04:11 D-Dimer 709.27 ng/mlDDU (0-234) H 10/03/17 23:53 POC ABG pH 7.352 (7.35-7.45) 10/04/17 11:09 POC ABG pCO2 38.2 (35-45) 10/04/17 11:09 POC ABG pO2 142 (80-105) H 10/04/17 11:09 POC ABG HCO3 21.2 10/04/17 11:09 POC ABG Total CO2 22 10/04/17 11:09 POC ABG O2 Sat 99 10/04/17 11:09 POC ABG Base Excess -4 10/04/17 11:09 VBG pH 7.211 (7.320-7.420) L 10/03/17 05:18 FiO2 35 % 10/04/17 11:09 Sodium 150 mmol/L (137-145) H 10/07/17 04:11 Potassium 3.5 mmol/L (3.6-5.0) L 10/07/17 04:11 Chloride 112.1 mmol/L (98-107) H 10/07/17 04:11 Carbon Dioxide 21 mmol/L (22-30) L 10/07/17 04:11 Anion Gap 20 mmol/L 10/07/17 04:11 BUN 18 mg/dL (7-17) H 10/07/17 04:11 Creatinine 1.4 mg/dL (0.7-1.2) H 10/07/17 04:11 Estimated GFR 51 ml/min 10/07/17 04:11 BUN/Creatinine Ratio 13 % 10/07/17 04:11 Glucose 206 mg/dL (65-100) H 10/07/17 04:11 POC Glucose 186 (70-105) H 10/07/17 07:11 Lactic Acid 2.70 mmol/L (0.7-2.0) H* 10/03/17 14:32 Calcium 8.9 mg/dL (8.4-10.2) 10/07/17 04:11 Phosphorus 2.70 mg/dL (2.5-4.5) 10/06/17 03:58 Magnesium 2.50 mg/dL (1.7-2.3) H 10/06/17 03:58 Total Bilirubin 0.60 mg/dL (0.1-1.2) 10/03/17 04:22 AST 11 units/L (5-40) 10/03/17 04:22 ALT 13 units/L (7-56) 10/03/17 04:22 Alkaline Phosphatase 107 units/L (35-129) 10/03/17 04:22 Troponin T < 0.010 ng/mL (0.00-0.029) 10/03/17 14:32 C-Reactive Protein 6.20 mg/dL (0.00-1.30) H 10/03/17 14:32 Total Protein 8.4 g/dL (6.3-8.2) H 10/03/17 04:22 Albumin 4.5 g/dL (3.9-5) 10/03/17 04:22 Albumin/Globulin Ratio 1.2 % 10/03/17 04:22 TSH 0.974 mlU/mL (0.270-4.200) 10/03/17 04:22 HCG, Qual Negative (Negative) 10/03/17 05:18 Urine Color Red (Yellow) 10/03/17 05:43 Urine Turbidity Clear (Clear) 10/03/17 05:43 Urine pH 6.0 (5.0-7.0) 10/03/17 05:43 Ur Specific [place] 1.025 (1.003-1.030) 10/03/17 05:43 Urine Protein <15 mg/dl mg/dL (Negative) 10/03/17 05:43 Urine Glucose (UA) >=500 mg/dL (Negative) 10/03/17 05:43 Urine Ketones Tr mg/dL (Negative) 10/03/17 05:43 Urine Blood Mod (Negative) 10/03/17 05:43 Urine Nitrite Neg (Negative) 10/03/17 05:43 Urine Bilirubin Neg (Negative) 10/03/17 05:43 Urine Urobilinogen < 2.0 mg/dL (<2.0) 10/03/17 05:43 Ur Leukocyte Esterase Neg (Negative) 10/03/17 05:43 Urine WBC (Auto) < 1.0 /HPF (0.0-6.0) 10/03/17 05:43 Urine RBC (Auto) 1.0 /HPF (0.0-6.0) 10/03/17 05:43 U Epithel Cells (Auto) < 1.0 /HPF (0-13.0) 10/03/17 05:43 Urine Mucus Few /HPF 10/03/17 05:43 Salicylates < 0.3 mg/dL (2.8-20.0) L 10/03/17 04:22 Urine Opiates Screen Presumptive negative 10/03/17 05:43 Urine Methadone Screen Presumptive negative 10/03/17 05:43 Acetaminophen < 15.0 ug/mL (10.0-30.0) 10/03/17 05:18 Ur Barbiturates Screen Presumptive positive 10/03/17 05:43 Ur Phencyclidine Scrn Presumptive negative 10/03/17 05:43 Ur Amphetamines Screen Presumptive negative 10/03/17 05:43 U Benzodiazepines Scrn Presumptive positive 10/03/17 05:43 Urine Cocaine Screen Presumptive negative 10/03/17 05:43 U Marijuana (THC) Screen Presumptive negative 10/03/17 05:43 Drugs of Abuse Note Disclamer 10/03/17 05:43 Plasma/Serum Alcohol < 0.01 gm% (0-0.07) 10/03/17 04:22
[2017-10-07] MEDS: D5W/0.45% NACL/KCL 20 MEQ 20 MEQ/1,000 ML BAG IV SCH (16:18)
--- NOTE | 2017-10-07 20:12 | Progress Note ---
Assessment and Plan Patient alert, awake and resting on room air.O2 saturation 97% on room air.No acute respiratory distress. - Patient Problems (1) Acute respiratory failure Current Visit: Yes Status: Acute Plan to address problem: Improved. Patient is on room air. O2 saturation 97%. (2) DKA (diabetic ketoacidoses) Current Visit: Yes Status: Acute Qualifiers: Diabetes mellitus type: type 2 Diabetes mellitus complication detail: with coma Qualified Code(s): E11.11 - Type 2 diabetes mellitus with ketoacidosis with coma Plan to address problem: Improving. Todays Bicarb 21. (3) ARF (acute renal failure) Current Visit: Yes Status: Acute Plan to address problem: Management as per primary care and nephrology. (4) History of asthma Current Visit: Yes Status: Acute Plan to address problem: Recommend Albuterol inhalor HFA 2 puffs po qid prn for wheezing and shortness of breath. (5) Morbid obesity Current Visit: Yes Status: Acute Plan to address problem: Weight reduction diet. Recommend exercise. Continue S/C heparin for DVT prophylaxis. Recommend sleep study as out patient. (6) Elevated d-dimer Current Visit: Yes Status: Acute Plan to address problem: Obtaining V/Q scan. Venous doppler studies negative for acute or chronic DVT. Subjective Date of service: 10/07/17 Principal diagnosis: Acute Hypoxemic Respiratory Failure; Hyperosmolar non ketotic state Interval history: Patient alert, awake and resting on room air.O2 saturation 97% on room air.No acute respiratory distress. Objective Vital Signs - 12hr 10/07/17 10/07/17 10/07/17 11:00 15:35 19:39 Temperature 97.8 F Respiratory 18 20 Rate Blood Pressure 127/78 O2 Sat by Pulse 97 Oximetry Constitutional: no acute distress, alert Eyes: non-icteric ENT: oropharynx moist Neck: supple, no lymphadenopathy, no JVD, other (no thyromegaly) Effort: normal Ascultation: Bilateral: diminished breath sounds, rhonchi (scant in bases) Percussion: Bilateral: not dull Cardiovascular: regular rate and rhythm, other (no rubs / murmurs) Gastrointestinal: normoactive bowel sounds, soft, non-tender, non-distended, other (No HSM) Integumentary: normal Extremities: no cyanosis, no edema, pulses normal, no ischemia or petechiae Neurologic: normal mental status, non-focal exam, pupils equal and round, motor strength normal and Psychiatric: mood appropriate, affect normal CBC and BMP: 10/07/17 04:11 10/07/17 04:11 ABG, PT/INR, D-dimer: ABG POC ABG pH 7.352 (7.35-7.45) 10/04/17 11:09 POC ABG pCO2 38.2 (35-45) 10/04/17 11:09 POC ABG pO2 142 (80-105) H 10/04/17 11:09 POC ABG HCO3 21.2 10/04/17 11:09 POC ABG Total CO2 22 10/04/17 11:09 POC ABG O2 Sat 99 10/04/17 11:09 PT/INR, D-dimer D-Dimer 709.27 ng/mlDDU (0-234) H 10/03/17 23:53 Abnormal lab findings: Abnormal Labs 10/03/17 10/03/17 10/03/17 04:14 04:22 04:22 WBC 13.8 H RBC 5.13 H Hct 43.6 H MCV MCH 24 L MCHC 29 L RDW 17.4 H [place] % (Auto) 8.4 H Eos % (Auto) [place] # 1.2 H Eos # Seg Neutrophils # 8.9 H D-Dimer POC ABG pH POC ABG pCO2 POC ABG pO2 VBG pH Sodium 128 L Potassium Chloride 86.0 L Carbon Dioxide 18 L BUN 18 H Creatinine 1.7 H Glucose 1396 H* POC Glucose > 500 H Lactic Acid Phosphorus Magnesium 2.50 H C-Reactive Protein Total Protein 8.4 H Salicylates 10/03/17 10/03/17 10/03/17 04:22 04:22 05:18 WBC RBC Hct MCV MCH MCHC RDW [place] % (Auto) Eos % (Auto) [place] # Eos # Seg Neutrophils # D-Dimer POC ABG pH POC ABG pCO2 POC ABG pO2 VBG pH 7.211 L Sodium Potassium Chloride Carbon Dioxide BUN Creatinine Glucose POC Glucose Lactic Acid 7.20 H* Phosphorus Magnesium C-Reactive Protein Total Protein Salicylates < 0.3 L 10/03/17 10/03/17 10/03/17 05:18 05:32 06:28 WBC RBC Hct MCV MCH MCHC RDW [place] % (Auto) Eos % (Auto) [place] # Eos # Seg Neutrophils # D-Dimer POC ABG pH 7.273 L POC ABG pCO2 48.0 H POC ABG pO2 412 H VBG pH Sodium 131 L Potassium 6.7 H* D Chloride 90.2 L Carbon Dioxide 19 L BUN 18 H Creatinine 1.6 H Glucose 1313 H* POC Glucose Lactic Acid Phosphorus 9.60 H Magnesium 2.50 H C-Reactive Protein Total Protein Salicylates 10/03/17 10/03/17 10/03/17 06:29 06:29 07:58 WBC RBC Hct MCV MCH MCHC RDW [place] % (Auto) Eos % (Auto) [place] # Eos # Seg Neutrophils # D-Dimer POC ABG pH POC ABG pCO2 POC ABG pO2 VBG pH Sodium Potassium 5.9 H Chloride Carbon Dioxide 20 L BUN 18 H Creatinine 1.5 H Glucose 1146 H* POC Glucose > 500 H Lactic Acid 3.30 H* Phosphorus Magnesium 2.60 H C-Reactive Protein Total Protein Salicylates 10/03/17 10/03/17 10/03/17 08:39 08:41 09:26 WBC RBC Hct MCV MCH MCHC RDW [place] % (Auto) Eos % (Auto) [place] # Eos # Seg Neutrophils # D-Dimer POC ABG pH POC ABG pCO2 POC ABG pO2 VBG pH Sodium 148 H D Potassium Chloride 110.9 H Carbon Dioxide 18 L BUN Creatinine 1.4 H Glucose 757 H* POC Glucose > 500 H > 500 H Lactic Acid Phosphorus Magnesium C-Reactive Protein Total Protein Salicylates 10/03/17 10/03/17 10/03/17 10:12 11:25 12:03 WBC RBC Hct MCV MCH MCHC RDW [place] % (Auto) Eos % (Auto) [place] # Eos # Seg Neutrophils # D-Dimer POC ABG pH POC ABG pCO2 POC ABG pO2 VBG pH Sodium Potassium Chloride Carbon Dioxide BUN Creatinine Glucose POC Glucose 492 H 468 H 300 H Lactic Acid Phosphorus Magnesium C-Reactive Protein Total Protein Salicylates 10/03/17 10/03/17 10/03/17 13:17 14:17 14:32 WBC RBC Hct MCV MCH MCHC RDW [place] % (Auto) Eos % (Auto) [place] # Eos # Seg Neutrophils # D-Dimer POC ABG pH POC ABG pCO2 POC ABG pO2 VBG pH Sodium 157 H D Potassium Chloride 117.3 H Carbon Dioxide 21 L BUN Creatinine 1.9 H Glucose 101 H POC Glucose 307 H 116 H Lactic Acid Phosphorus Magnesium C-Reactive Protein Total Protein Salicylates 10/03/17 10/03/17 10/03/17 14:32 14:32 15:47 WBC RBC Hct MCV MCH MCHC RDW [place] % (Auto) Eos % (Auto) [place] # Eos # Seg Neutrophils # D-Dimer POC ABG pH POC ABG pCO2 POC ABG pO2 VBG pH Sodium Potassium Chloride Carbon Dioxide BUN Creatinine Glucose POC Glucose 176 H Lactic Acid 2.70 H* Phosphorus Magnesium C-Reactive Protein 6.20 H Total Protein Salicylates 10/03/17 10/03/17 10/03/17 16:32 16:35 17:48 WBC RBC Hct MCV MCH MCHC RDW [place] % (Auto) Eos % (Auto) [place] # Eos # Seg Neutrophils # D-Dimer POC ABG pH 7.298 L POC ABG pCO2 POC ABG pO2 111 H VBG pH Sodium Potassium Chloride Carbon Dioxide BUN Creatinine Glucose POC Glucose 208 H 212 H Lactic Acid Phosphorus Magnesium C-Reactive Protein Total Protein Salicylates 10/03/17 10/03/17 10/03/17 18:30 19:52 22:09 WBC RBC Hct MCV MCH MCHC RDW [place] % (Auto) Eos % (Auto) [place] # Eos # Seg Neutrophils # D-Dimer POC ABG pH POC ABG pCO2 POC ABG pO2 VBG pH Sodium Potassium Chloride Carbon Dioxide BUN Creatinine Glucose POC Glucose 207 H 151 H 157 H Lactic Acid Phosphorus Magnesium C-Reactive Protein Total Protein Salicylates 10/03/17 10/03/17 10/03/17 22:14 23:32 23:53 WBC RBC Hct MCV MCH MCHC RDW [place] % (Auto) Eos % (Auto) [place] # Eos # Seg Neutrophils # D-Dimer 709.27 H POC ABG pH POC ABG pCO2 POC ABG pO2 VBG pH Sodium 156 H Potassium Chloride 116.9 H Carbon Dioxide 20 L BUN 19 H Creatinine 2.4 H Glucose 179 H POC Glucose 270 H Lactic Acid Phosphorus Magnesium C-Reactive Protein Total Protein Salicylates 10/04/17 10/04/17 10/04/17 00:27 01:05 02:08 WBC RBC Hct MCV MCH MCHC RDW [place] % (Auto) Eos % (Auto) [place] # Eos # Seg Neutrophils # D-Dimer POC ABG pH POC ABG pCO2 POC ABG pO2 VBG pH Sodium Potassium Chloride Carbon Dioxide BUN Creatinine Glucose POC Glucose 243 H 191 H 140 H Lactic Acid Phosphorus Magnesium C-Reactive Protein Total Protein Salicylates 10/04/17 10/04/17 10/04/17 03:04 04:10 04:47 WBC RBC Hct MCV MCH MCHC RDW [place] % (Auto) Eos % (Auto) [place] # Eos # Seg Neutrophils # D-Dimer POC ABG pH POC ABG pCO2 POC ABG pO2 VBG pH Sodium 155 H Potassium Chloride 116.7 H Carbon Dioxide 19 L BUN 19 H Creatinine 2.4 H Glucose 233 H POC Glucose 126 H 195 H Lactic Acid Phosphorus Magnesium C-Reactive Protein Total Protein Salicylates 10/04/17 10/04/17 10/04/17 05:16 06:17 07:12 WBC RBC Hct MCV MCH MCHC RDW [place] % (Auto) Eos % (Auto) [place] # Eos # Seg Neutrophils # D-Dimer POC ABG pH POC ABG pCO2 POC ABG pO2 VBG pH Sodium Potassium Chloride Carbon Dioxide BUN Creatinine Glucose POC Glucose 228 H 302 H 250 H Lactic Acid Phosphorus Magnesium C-Reactive Protein Total Protein Salicylates 10/04/17 10/04/17 10/04/17 08:35 09:31 11:09 WBC RBC Hct MCV MCH MCHC RDW [place] % (Auto) Eos % (Auto) [place] # Eos # Seg Neutrophils # D-Dimer POC ABG pH POC ABG pCO2 POC ABG pO2 142 H VBG pH Sodium Potassium Chloride Carbon Dioxide BUN Creatinine Glucose POC Glucose 205 H 142 H Lactic Acid Phosphorus Magnesium C-Reactive Protein Total Protein Salicylates 10/04/17 10/04/17 10/04/17 11:19 11:54 13:02 WBC RBC Hct MCV MCH MCHC RDW [place] % (Auto) Eos % (Auto) [place] # Eos # Seg Neutrophils # D-Dimer POC ABG pH POC ABG pCO2 POC ABG pO2 VBG pH Sodium Potassium Chloride Carbon Dioxide BUN Creatinine Glucose POC Glucose 177 H 208 H 285 H Lactic Acid Phosphorus Magnesium C-Reactive Protein Total Protein Salicylates 10/04/17 10/04/17 10/04/17 17:28 21:22 21:24 WBC RBC Hct MCV MCH MCHC RDW [place] % (Auto) Eos % (Auto) [place] # Eos # Seg Neutrophils # D-Dimer POC ABG pH POC ABG pCO2 POC ABG pO2 VBG pH Sodium Potassium Chloride Carbon Dioxide BUN Creatinine Glucose POC Glucose 398 H 440 H 395 H Lactic Acid Phosphorus Magnesium C-Reactive Protein Total Protein Salicylates 10/05/17 10/05/17 10/05/17 01:57 04:38 07:24 WBC RBC Hct MCV MCH MCHC RDW [place] % (Auto) Eos % (Auto) [place] # Eos # Seg Neutrophils # D-Dimer POC ABG pH POC ABG pCO2 POC ABG pO2 VBG pH Sodium Potassium 5.5 H D Chloride 113.4 H Carbon Dioxide 15 L BUN 31 H Creatinine 2.4 H Glucose 501 H* POC Glucose 447 H 430 H Lactic Acid Phosphorus Magnesium C-Reactive Protein Total Protein Salicylates 10/05/17 10/05/17 10/05/17 10:54 13:22 15:23 WBC RBC Hct MCV MCH MCHC RDW [place] % (Auto) Eos % (Auto) [place] # Eos # Seg Neutrophils # D-Dimer POC ABG pH POC ABG pCO2 POC ABG pO2 VBG pH Sodium Potassium Chloride Carbon Dioxide BUN Creatinine Glucose POC Glucose 480 H 416 H 414 H Lactic Acid Phosphorus Magnesium C-Reactive Protein Total Protein Salicylates 10/05/17 10/05/17 10/06/17 21:19 23:04 00:10 WBC RBC Hct MCV MCH MCHC RDW [place] % (Auto) Eos % (Auto) [place] # Eos # Seg Neutrophils # D-Dimer POC ABG pH POC ABG pCO2 POC ABG pO2 VBG pH Sodium Potassium Chloride Carbon Dioxide BUN Creatinine Glucose POC Glucose 412 H 344 H 279 H Lactic Acid Phosphorus Magnesium C-Reactive Protein Total Protein Salicylates 10/06/17 10/06/17 10/06/17 01:43 03:58 03:58 WBC RBC Hct MCV 75 L MCH 25 L MCHC RDW 16.2 H [place] % (Auto) 15.1 H Eos % (Auto) 6.8 H [place] # 1.5 H Eos # 0.7 H Seg Neutrophils # D-Dimer POC ABG pH POC ABG pCO2 POC ABG pO2 VBG pH Sodium Potassium Chloride Carbon Dioxide BUN Creatinine Glucose POC Glucose 138 H Lactic Acid Phosphorus Magnesium 2.50 H C-Reactive Protein Total Protein Salicylates 10/06/17 10/06/17 10/06/17 03:59 05:13 06:15 WBC RBC Hct MCV MCH MCHC RDW [place] % (Auto) Eos % (Auto) [place] # Eos # Seg Neutrophils # D-Dimer POC ABG pH POC ABG pCO2 POC ABG pO2 VBG pH Sodium Potassium Chloride Carbon Dioxide BUN Creatinine Glucose POC Glucose 108 H 134 H 157 H Lactic Acid Phosphorus Magnesium C-Reactive Protein Total Protein Salicylates 10/06/17 10/06/17 10/06/17 07:54 08:18 09:34 WBC RBC Hct MCV MCH MCHC RDW [place] % (Auto) Eos % (Auto) [place] # Eos # Seg Neutrophils # D-Dimer POC ABG pH POC ABG pCO2 POC ABG pO2 VBG pH Sodium 152 H Potassium Chloride 115.3 H Carbon Dioxide 21 L BUN 22 H Creatinine 1.5 H Glucose 143 H POC Glucose 152 H 146 H Lactic Acid Phosphorus Magnesium C-Reactive Protein Total Protein Salicylates 10/06/17 10/06/17 10/06/17 11:20 16:41 22:35 WBC RBC Hct MCV MCH MCHC RDW [place] % (Auto) Eos % (Auto) [place] # Eos # Seg Neutrophils # D-Dimer POC ABG pH POC ABG pCO2 POC ABG pO2 VBG pH Sodium Potassium Chloride Carbon Dioxide BUN Creatinine Glucose POC Glucose 170 H 209 H 346 H Lactic Acid Phosphorus Magnesium C-Reactive Protein Total Protein Salicylates 10/07/17 10/07/17 10/07/17 04:11 04:11 07:11 WBC RBC Hct MCV 76 L MCH 24 L MCHC RDW 16.5 H [place] % (Auto) 10.8 H Eos % (Auto) 6.0 H [place] # Eos # Seg Neutrophils # D-Dimer POC ABG pH POC ABG pCO2 POC ABG pO2 VBG pH Sodium 150 H Potassium 3.5 L Chloride 112.1 H Carbon Dioxide 21 L BUN 18 H Creatinine 1.4 H Glucose 206 H POC Glucose 186 H Lactic Acid Phosphorus Magnesium C-Reactive Protein Total Protein Salicylates 10/07/17 10/07/17 11:51 16:05 WBC RBC Hct MCV MCH MCHC RDW [place] % (Auto) Eos % (Auto) [place] # Eos # Seg Neutrophils # D-Dimer POC ABG pH POC ABG pCO2 POC ABG pO2 VBG pH Sodium Potassium Chloride Carbon Dioxide BUN Creatinine Glucose POC Glucose 143 H 193 H Lactic Acid Phosphorus Magnesium C-Reactive Protein Total Protein Salicylates Allied health notes reviewed: RT
[2017-10-07] MEDS ORDERED: LEVEMIR SUB-Q SCH (22:00)
[2017-10-08] MEDS: D5W/0.45% NACL/KCL 20 MEQ 20 MEQ/1,000 ML BAG IV SCH (05:27)
[2017-10-08 05:42] LABS: Basophils % (Auto) 0.4 % (0.0-1.8); Eosinophils % (Auto) 5.5 % (0.0-4.3); Hematocrit 33.7 % (30.3-42.9); Hemoglobin 11.1 gm/dl (10.1-14.3); Mean Corpuscular HGB Conc 33 % (30-34); Mean Corpuscular Volume 75 fl (79-97); Platelet Count 122 K/mm3 (140-440); Red Blood Count 4.51 M/mm3 (3.65-5.03); Red Cell Distribution Width 15.9 % (13.2-15.2)
[2017-10-08 05:45] LABS: Mean Corpuscular Hemoglobin 25 pg (28-32)
[2017-10-08 06:04] LABS: Anion Gap 18 mmol/L; BUN/Creatinine Ratio 10; Blood Urea Nitrogen 12 mg/dL (7-17); Calcium 8.4 mg/dL (8.4-10.2); Carbon Dioxide 21 mmol/L (22-30); Chloride 108.9 mmol/L (98-107); Glucose 279 mg/dL (65-100); Potassium 3.5 mmol/L (3.6-5.0); Sodium 144 mmol/L (137-145)
[2017-10-08] MEDS: NOVOLOG SUB-Q SCH ×3 (07:59→17:42)
[2017-10-08] MEDS ORDERED: K-DUR PO ONE (09:00)
[2017-10-08] MEDS: TRADJENTA PO SCH (09:31)
[2017-10-08] MEDS: PEPCID PO SCH (09:31)
--- NOTE | 2017-10-08 11:46 | Nuclear Medicine Report ---
LUNG SCAN, VENTILATION AND PERFUSION: History: Elevated d-dimer, evaluate for pulmonary embolus. Technique: 5mci of Tc99m MAA was infused for the perfusion images. 15mci XE 133 gas was inhaled for the ventilatory images. Correlation is made with a chest x-ray dated 10/06/17. Findings: Inhalation of Xenon gas demonstrates a normal distribution of the activity throughout both lungs. The wash out phases show no focal retention of activity. After injection of Technetium 99m macroaggregated albumin gamma camera imaging of the lungs in multiple projections demonstrates normal pulmonary contours with a homogeneous distribution of activity. No focal areas of perfusion deficiency are identified. IMPRESSION: Low probability for pulmonary embolus.
--- NOTE | 2017-10-08 13:44 | Discharge Summary ---
Providers - Providers Date of Admission: 10/03/17 05:59 Date of discharge: 10/08/17 Attending physician: EDI KHOURY 10/03/17 04:22 Consult to Dietitian/Nutrition [CONS] Routine Physician Instructions: Reason For Exam: Reason for Consult: Poor oral intake 10/03/17 05:32 Consult to Dietitian/Nutrition [CONS] Routine Physician Instructions: Reason For Exam: DKA Reason for Consult: Nutrition Recommendations Reason for Consult: Diet education 10/03/17 06:31 Consult to Physician [CONS] Routine Consulting Provider: DIRK COON Reason For Exam: resp failure Place consult to:: Dr. Coon Notified:: Answering Service Phone number called:: [phone] Was contact made?: No Primary care physician: RESEARCH AND EVALUATION MANAGER Hospitalization Condition: Stable Hospital course: 37 YO Female with MO,HTN, DM who was found down and unresponsive by her son who then notified EMS. Upon EMS arrival, the patient was found to be unresponsive with serum glucose above 500. Found to be in DKA with respiratory distress and confusion, and intubated in ER, has since been extubated and rx for DKA, doing better. Patient has history of chronic left elbow dvt. 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 - DKA/Uncontrolled DM continue sq insulins, DKA now resolved, continue to rx hyperglycemia - SIRS Lactic acidosis Metabolic Acidosis secondary to DKA, resolved metabolic encephalopathy due to dka, now resolved -RUFUS on IV hydration-secondary to vasomotor nephropathy/ATN -resolving, continue IVF - Hypernatremia-/Dehydration restart half NS Acute bronchitis, coughing up yellow phlegm home with azithromycin left facial swelling with discoloration abscess was ruled out likely Acanthosis Nigrans, Morbid Obesity 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, and lifestyle mod recommended Hyperkalemia now resolved Hypokalemia replete IV DVT prophylaxis - Heparin GI prophylaxis - On Pepcid Disposition: TO HOME OR SELFCARE Time spent for discharge: 34 minutes Core Measure Documentation - Palliative Care Palliative Care/ Comfort Measures: Not Applicable - Core Measures Any of the following diagnoses?: DVT/PE - VTE Discharge Requirements Deep Vein Thrombosis/Pulmonary Embolism Present on Admission: No Has pt received <5 days of overlap therapy or INR<2.0: No (on Eliquis) Anticoagulant overlap therapy prescribed at discharge: No Contraindication No Overlap Therapy order at DC: Not Indicated Exam - Physical Exam Narrative exam: GEN: WDWN, NAD, AWAKE, ALERT, ORIENTATED 3 HEENT: NCAT, EOMI, PERRL, OP Clear NECK: supple, no adenopathy, no thyromegaly, no JVD CVS/HEART: RRR, NORMAL S1S2, NO JVD, pulses present bilaterally CHEST/LUNGS: CTA B, Symmetrical chest expansion, good air entry bilaterally GI/Abdomen: soft, NTND, good bowel sounds, no guarding or rebound /Bladder: no suprapubic tenderness, no CVA or paraspinal tenderness EXT/Skin: no c/c/e, no obvious rash MSK: FROM x 4 Neuro: CN 2-12 grossly intact, no new focal deficits Psych: calm - Constitutional Vitals: Temp Pulse Resp BP Pulse Ox 98.2 F 85 16 118/77 99 10/08/17 07:09 10/08/17 07:09 10/08/17 07:09 10/08/17 07:09 10/08/17 10:54 Plan Activity: other (no strenous activity until cleared by pcp) Diet: low salt, diabetic Follow up with: PRIMARY CARE, [Primary Care Provider] - 3-5 Days Prescriptions: Insulin Detemir [Levemir] 25 units SUB-Q QHS #30 day Azithromycin [Zithromax Z-CECELIA] 1 dose PO DAILY #1 pack Insulin Aspart [NovoLOG Flexpen] 1 dose SQ AC #1 pen
[2017-10-08 17:24] VITALS: BP 119/78
== END 2017-10-08 17:59 | disposition home or self-care (01) | DRG 871 ==
LOC: ED 04:10 → CC1 05:59 → 3A 10-06 16:43
PROVIDERS: ADMIT Internal Medicine; ATTEND Internal Medicine
PROC: 4A033R1 Measurement of Arterial Saturation, Peripheral, Percutaneous Approach (ICD-10-PCS; principal; 2017-10-03)
PROC: 5A1945Z Respiratory Ventilation, 24-96 Consecutive Hours (ICD-10-PCS; 2017-10-03)
PROC: 0BH17EZ Insertion of Endotracheal Airway into Trachea, Via Natural or Artificial Opening (ICD-10-PCS; 2017-10-03)
PROC: 5A09357 Assistance with Respiratory Ventilation, Less than 24 Consecutive Hours, Continuous Positive Airway Pressure (ICD-10-PCS; 2017-10-04)
PROC: 5A09357 Assistance with Respiratory Ventilation, Less than 24 Consecutive Hours, Continuous Positive Airway Pressure (ICD-10-PCS; 2017-10-06)
DX: A41.9 Sepsis, unspecified organism (principal); J96.01 Acute respiratory failure with hypoxia; N17.0 Acute kidney failure with tubular necrosis; G92 Toxic encephalopathy; E11.10 Type 2 diabetes mellitus with ketoacidosis without coma; E11.00 Type 2 diabetes mellitus with hyperosmolarity without nonketotic hyperglycemic-hyperosmolar coma (NKHHC); E87.0 Hyperosmolality and hypernatremia; Z68.42 Body mass index [BMI] 45.0-49.9, adult; I10 Essential (primary) hypertension; Z96.652 Presence of left artificial knee joint; E66.01 Morbid (severe) obesity due to excess calories; Z83.3 Family history of diabetes mellitus; Z82.49 Family history of ischemic heart disease and other diseases of the circulatory system; Z91.012 Allergy to eggs; Z91.02 Food additives allergy status; Z91.010 Allergy to peanuts; Z91.013 Allergy to seafood; Z88.2 Allergy status to sulfonamides; Z91.018 Allergy to other foods; Z79.4 Long term (current) use of insulin; Z79.899 Other long term (current) drug therapy; J20.9 Acute bronchitis, unspecified
CPT/HCPCS: 36415; 36600; 70450; 70490; 71010; 76770; 78582; 80048; 80053; 80307; 80320; 81001; 82140; 82803; 82805; 82962; 83735; 84100; 84443; 84484; 84703; 85025; 85379; 86140; 87040; 87070; 87205; 93005; 93010; 93970; 94002; 94003; 94660; 94760; A9540; A9558; G0480; J1644; J1815; J1818; J2250; J2310; J2543; J3010; J7030

== ENCOUNTER 2018-03-03 11:47 | Emergency (ER) | payer MEDICARE ==
[2018-03-03 12:19] VITALS: BP 144/93
[2018-03-03] MEDS ORDERED: NORCO 7.5/325 PO ONE (13:16)
--- NOTE | 2018-03-03 13:18 | Emergency Department Report ---
Upper Extremity - HPI Chief Complaint: Extremity Injury, Upper Stated Complaint: POSSIBEL BLOOD CLOT IN LEFT ARM Time Seen by Provider: 03/03/18 13:10 Upper Extremity: Left Arm, Left Elbow Severity: moderate (7/10) Other History: 38-year-old [place] female with a past medical history of blood clots and extremities as well as blood clot in her brain. Patient was sent here by her primary care provider Dr. Talya Castelan for ultrasound of left upper extremity. Patient reports that she has left arm pain with tenderness and swelling concerning areas of the forearm. Patient reports that she is on Eliquis 5 mg twice a day. She is not a smoker. She denies any chest pain shortness of breathing headache. ED Review of Systems ROS: Stated complaint: POSSIBEL BLOOD CLOT IN LEFT ARM Other details as noted in HPI Constitutional: denies: chills, fever Eyes: denies: eye pain, eye discharge, vision change ENT: denies: ear pain, throat pain Respiratory: denies: cough, shortness of breath, wheezing Cardiovascular: denies: chest pain, palpitations Endocrine: no symptoms reported Gastrointestinal: denies: abdominal pain, nausea, diarrhea Genitourinary: denies: urgency, dysuria, discharge Musculoskeletal: other (left arm to areas of swelling tenderness. Nonerythematous non-indurated. Able to move her arm without difficulties or pain. Pain is with palpitation to the arm.) Skin: denies: rash, lesions Neurological: denies: headache, weakness, paresthesias Psychiatric: denies: anxiety, depression Hematological/Lymphatic: denies: easy bleeding, easy bruising ED Past Medical Hx - Past Medical History Previous Medical History?: Yes Hx Hypertension: Yes Hx Congestive Heart Failure: No Hx Diabetes: Yes Hx Deep Vein Thrombosis: No Hx Seizures: Yes ( induced- last seizure 4 yrs ago) Hx Asthma: Yes Hx COPD: No Additional medical history: "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 PER EMS", DVT - Surgical History Past Surgical History?: Yes Hx Pacemaker: No Hx Internal Defibrillator: No Additional Surgical History: "left knee" "" "sinus surgeries" - Social History Smoking Status: Never Smoker Substance Use Type: Prescribed - Medications Home Medications: Home Medications Medication Instructions Recorded Confirmed Last Taken Type Apixaban [Eliquis] 5 mg PO BID 10/07/17 10/07/17 Unknown History Azithromycin [Zithromax Z-CECELIA] 1 dose PO DAILY #1 pack 10/08/17 Unknown Rx Detemir (Nf) [Levemir (Nf)] 25 units SUB-Q QHS #30 day 10/08/17 Unknown Rx Insulin Aspart [NovoLOG Flexpen] 1 dose SQ AC #1 pen 10/08/17 Unknown Rx Upper Extremity Exam - Exam General: Vital signs noted. No distress. Alert and acting appropriately. Head and Torso: No HEENT Abnormality, No Neck Tenderness, No Chest/Lungs Abnormality, No Abdominal Tenderness, No Back Tenderness Shoulder Exam: Yes Normal Range of Motion in Shoulder, No Shoulder Tenderness, No Clavicle Tenderness, No Shoulder Deformity, No AC Joint Tenderness Arm Exam: No Arm/Humerus Tenderness, No Arm Deformity Elbow: No Elbow Tenderness, No Normal Range of Motion in Elbow, No Elbow Deformity Forearm: Yes Forearm Tenderness (midforearm on tenderness, swelling nonerythematous), No Forearm Deformity, No Pain with Pronation, No Pain with Supination Wrist: Yes Normal ROM in Wrist, No Wrist Tenderness, No Wrist Deformity, No Snuffbox Tenderness, No Pain with Axial Thumb Compression Hand: Yes Normal ROM in Digit(s), No Hand Tenderness, No Hand Deformity, No Digit Tenderness, No Digit(s) Deformity, No Tendon Dysfunction CMS Exam: Yes Normal Distal Pulses, Yes Normal Capillary Refill, Yes Normal Distal Sensation, No Broken Skin ED Course Vital Signs 03/03/18 12:16 Temperature 98 F Pulse Rate 85 Respiratory 18 Rate Blood Pressure 144/93 O2 Sat by Pulse 97 Oximetry ED Medical Decision Making - Lab Data Result diagrams: 03/03/18 14:30 03/03/18 14:30 - Radiology Data Radiology results: report reviewed, image reviewed LUE VENOUS DUPLEX COMPLETED. VAS LAB PRELIMINARY REPORT; NO EVIDENCE OF DVT/SVT NOTED. SMALL AMOUNT OF CHRONIC RECANALIZED DVT NOTED IN LT. IJV. PHYSICIANS REPORT TO FOLLOW...(RSK) Initialized on 03/03/18 13:54 - END OF NOTE - Medical Decision Making Patient's been evaluated with his provider fast. Discussed the patient that we do a CBC, CMP, PT INR, left upper extremity ultrasound. I will give patient [place] 7.5 mg for pain. Discussed the patient that we will follow up with her ultrasound. We will monitor pain. Patient verbalized understanding. Ultrasound of left arm shows no acute DVT. Discussed the patient should take pain medication and continue with Eliquis as prescribed by your provider and follow-up with her primary care provider. Critical care attestation.: If time is entered above; I have spent that time in minutes in the direct care of this critically ill patient, excluding procedure time. ED Disposition Clinical Impression: Left arm pain Disposition: DC-01 TO HOME OR SELFCARE Is pt being admited?: No Does the pt Need Aspirin: No Condition: Stable Additional Instructions: Continue with Eliguis 5 mg twice a day. He can take Tylenol for pain. Follow- up with her primary care provider. Referrals: TALYA CASTELAN MD [Primary Care Provider] - 3-5 Days Forms: Work/School Release Form(ED)
[2018-03-03 14:45] LABS: Basophils % (Auto) 0.4 % (0.0-1.8); Eosinophils # (Auto) 0.3 K/mm3 (0.0-0.4); Eosinophils % (Auto) 3.5 % (0.0-4.3); Hematocrit 37.5 % (30.3-42.9); Hemoglobin 12.2 gm/dl (10.1-14.3); Lymphocytes # (Auto) 3.1 K/mm3 (1.2-5.4); Lymphocytes % (Auto) 38.5 % (13.4-35.0); Mean Corpuscular HGB Conc 33 % (30-34); Mean Corpuscular Volume 75 fl (79-97); Monocytes # (Auto) 0.7 K/mm3 (0.0-0.8); Monocytes % (Auto) 8.8 % (0.0-7.3); Platelet Count 251 K/mm3 (140-440); Red Blood Count 5.03 M/mm3 (3.65-5.03); Red Cell Distribution Width 16.1 % (13.2-15.2)
[2018-03-03 14:47] LABS: Mean Corpuscular Hemoglobin 24 pg (28-32)
[2018-03-03 14:56] LABS: INR 1.06 (0.87-1.13)
[2018-03-03 14:57] LABS: Partial Thromboplastin Time 34.6 Sec. (24.2-36.6)
[2018-03-03 15:00] LABS: Alanine Aminotransferase 8 units/L (7-56); Albumin 3.9 g/dL (3.9-5); BUN/Creatinine Ratio 11; Blood Urea Nitrogen 8 mg/dL (7-17); Calcium 9.3 mg/dL (8.4-10.2); Hemolysis Index 1
--- NOTE | 2018-03-04 11:41 | Vascular Lab Report ---
LEFT UPPER EXTREMITY VENOUS DUPLEX: REASON FOR EXAM: Pain and swelling of the left upper extremity COMMENTS ON THE LEFT: A small amount of partially occluding chronic thrombus is seen in the internal jugular vein. The remaining veins visualized are freely compressible without evidence of internal echogenicity. Spontaneous and phasic flow is present proximally. COMMENTS ON THE RIGHT: A limited study of the jugular and subclavian veins shows no evidence of thrombus. 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 No evidence of acute deep venous thrombosis in the left upper extremity.
== END 2018-03-03 15:20 | disposition home or self-care (01) ==
LOC: ED 11:47
DX: I74.19 Embolism and thrombosis of other parts of aorta (principal); M79.602 Pain in left arm; I10 Essential (primary) hypertension; E11.9 Type 2 diabetes mellitus without complications; J45.909 Unspecified asthma, uncomplicated; Z79.4 Long term (current) use of insulin
CPT/HCPCS: 36415; 80053; 85025; 85610; 85730; 99283